=== PATIENT | female | born 1950 | race Asian ===

== ENCOUNTER → 2018-03-27 07:58 | Outpatient (CLI) | payer MEDICARE, OTHER, SELFPAY ==
--- NOTE | 2018-03-27 | DI.US.S_ITS ---
PROCEDURE: US PELVIC COMPLETE INDICATIONS: RIGHT LOWER QUADRANT PAIN TECHNIQUE: Real-time scanning was performed of the pelvic organs, with image documentation. Additional endovaginal scanning was necessary due to incomplete visualization of the adnexal and endometrial structures by transabdominal scanning. COMPARISON: [facility], , US ABDOMEN COMPLETE, 03/27/2018, 8:31. FINDINGS: Transabdominal scanning: Limited scanning through the kidneys shows no hydronephrosis. No pathologic free abdominal or pelvic fluid. Endovaginal scanning: Uterus: Uterus is normal in size at 3.8 x 2.2 x 3.6 cm. The endometrium measures 1.8 mm in combined thickness. Ovaries: Not visualized. The appendix is not visualized. IMPRESSION: No source for right lower quadrant pain identified and the ovaries nor the appendix is not seen. If indicated CT could be performed. Dictated by: Brandon GREENE Interpreted: Sherice Valiente MD on 03/27/2018 at 12:41 Approved by: Sherice Valiente M.D. on 03/27/2018 at 15:05
--- NOTE | 2018-03-27 | DI.US.S_ITS ---
PROCEDURE: US ABDOMEN COMPLETE INDICATIONS: RIGHT LOWER QUADRANT PAIN TECHNIQUE: Real-time scanning was performed of the abdominal and retroperitoneal organs, with image documentation. COMPARISON: None. FINDINGS: Liver: Liver is normal in size and homogeneous in echotexture. Gallbladder: No gallstones identified. Normal gallbladder wall. No pericholecystic fluid. Negative sonographic Merritt sign. Biliary ducts: Intrahepatic bile ducts are non-dilated. Extrahepatic bile duct caliber measures 7.5 mm. Normal is 6-7 mm or less in diameter, or 10 mm or less post-cholecystectomy. Pancreas: Visualized portions of the pancreas are sonographically normal. Spleen: Spleen is normal in size and homogeneous in echotexture. Kidneys: Kidneys are normal in size and echotexture. Right kidney measures 9.5 cm long; left kidney measures 9.1 cm long. No hydronephrosis or nephrolithiasis. No solid masses. Aorta: Visualized aorta is normal in caliber at less than 3 cm. Iliacs: Proximal common iliac arteries are normal in caliber at less than 2.5 cm. IVC: Intrahepatic inferior vena cava is patent. Miscellaneous: No free abdominal fluid. IMPRESSION: No source for right lower quadrant pain identified sonographically. Dictated by: Brandon GREENE Interpreted: Sherice Valiente MD on 03/27/2018 at 12:39 Approved by: Sherice Valiente M.D. on 03/27/2018 at 15:05
== END ==
PROVIDERS: PCP Internal Medicine; Visit Provider Internal Medicine
DX: R10.31 Right lower quadrant pain (principal)
CPT/HCPCS: 76700; 76830; 76856

== ENCOUNTER → 2018-04-04 12:39 | Outpatient (CLI) | payer MEDICARE, OTHER, SELFPAY ==
--- NOTE | 2018-04-04 | DI.CT.S_ITS ---
PROCEDURE: CT ABDOMEN PELVIS WO/W CON INDICATIONS: HEMATURIA TECHNIQUE: After the administration of oral contrast, 5 mm thick sections acquired from the diaphragms to the iliac crests. After the administration of intravenous contrast, 5 mm thick sections acquired from the diaphragms to the symphysis. 5 mm thick coronal and sagittal reformats were acquired. For radiation dose reduction, the following was used: automated exposure control, adjustment of mA and/or kV according to patient size. COMPARISON: None. FINDINGS: Image quality: Excellent. ABDOMEN: Lung bases: Lung bases are clear. Heart size is normal. Kidneys: Both kidneys are normal in size. No renal stones or hydronephrosis. No hydronephrosis or nephrolithiasis. There is normal, symmetric renal enhancement. There is a 1.4 cm , mildly complex cyst in the left kidney with internal thin septa (Bosniak 2F). Renal calyceal systems are normal without filling defects on post contrast images. Ureters are normal in caliber and demonstrate expected course. No ureter stones. Bladder is normal. No bladder stones or masses. Other solid organs: Liver is normal in size and enhancement. Gallbladder is normal. Biliary system is non-dilated. Pancreas enhances normally. Spleen is normal in size and enhancement. No adrenal nodules. Bowel and peritoneum: Stomach, small and large bowel loops are normal in caliber and wall thickness. No free fluid or air. Nodes and vessels: No retroperitoneal or mesenteric adenopathy by size criteria. Aorta and inferior vena are normal in caliber. Miscellaneous: No ventral hernias. PELVIS: Genitourinary: Uterus is atrophic. Miscellaneous: No inguinal hernias or adenopathy. Bones: No suspicious bony lesions. No vertebral body compression fractures. IMPRESSION: 1. A 1.4 cm slightly complex cyst in the left kidney (Bosniak 2F). 2. No CT findings to explain hematuria. No renal stone or hydronephrosis. No renal masses. 3. Normal urinary bladder. Dictated by: Elle Cooper M.D. on 04/04/2018 at 15:54 Transcribed by: SHAILESH on 04/04/2018 at 16:00 Approved by: Elle Cooper M.D. on 04/04/2018 at 17:20
== END ==
PROVIDERS: PCP Internal Medicine; Visit Provider Urology
DX: R31.9 Hematuria, unspecified (principal); N28.1 Cyst of kidney, acquired
CPT/HCPCS: 74178; Q9967

== ENCOUNTER → 2018-04-24 11:41 | Outpatient (CLI) | payer MEDICARE, OTHER, SELFPAY ==
--- NOTE | 2018-04-24 | DI.MG.S_ITS ---
BILATERAL DIGITAL SCREENING MAMMOGRAM 3D/2D WITH CAD: 04/24/2018 CLINICAL: Routine screening. Comparison is made to exams dated: 07/18/2016 mammogram, 07/08/2014 mammogram, and 05/29/2013 mammogram - [facility]. The tissue of both breasts is extremely dense, which lowers the sensitivity of mammography. Current study was also evaluated with a Computer Aided Detection (CAD) system. There are benign calcifications in both breasts. No significant masses, calcifications, or other findings are seen in either breast. There has been no significant interval change. IMPRESSION: BENIGN There is no mammographic evidence of malignancy. A 1 year screening mammogram is recommended. This exam was interpreted at Station ID: [id number]. NOTE: For mammograms, a report in lay terms will be sent to the patient. Approximately 15% of breast malignancies will not be visualized mammographically. In the management of a palpable breast mass, a negative mammogram must not discourage biopsy of a clinically suspicious lesion. Electronically Signed By: Mainor blue/afia:04/25/2018 03:24:44 letter sent: Normal Exam ACR BI-RADS Category 2: Benign Finding(s) 3342F
== END ==
PROVIDERS: PCP Internal Medicine; Visit Provider Internal Medicine
DX: Z12.31 Encounter for screening mammogram for malignant neoplasm of breast (principal)
CPT/HCPCS: 77063; 77067

== ENCOUNTER 2018-05-21 18:57 | Emergency (ER) | payer MEDICARE, OTHER, SELFPAY ==
--- NOTE | 2018-05-21 19:03 | ED_ITS ---
HPI - Chest Pain General Chief Complaint: Chest Pain Stated Complaint: LEFT SIDE CHEST PAIN UPPER BACK PAIN Time Seen by Provider: 05/21/18 19:02 Source: patient Mode of arrival: ambulatory Limitations: no limitations History of Present Illness HPI narrative: Patient is a 67-year-old female sent over from her primary doctor 's office for concerns of chest pain. Patient states that on Monday which was 3 days ago she was at her normal state health. She states she was thirsty so she took a drink of water. She states that afterwards she had a pain in her chest. She states she thought that it was reflux. She took an antacid which did improve her symptoms somewhat but did not take the symptoms completely away. She states that since then she has had a baseline small pain in her epigastric region. She states that it does get worse with taking a big deep breath. She states she does feel it in her back. No nausea vomiting. No prior history of blood clots. No prior history of coronary artery disease. No history of hypertension. She went to her primary care doctor today who sent her here for evaluation of cardiac, pleurisy, PE workup. Patient also states that her symptoms returned when she bends over. Related Data Previous Rx's Medication Instructions Recorded betamethasone dipropionate 1 claudio TOPICAL BID #45 gm 04/11/16 hydroxyzine pamoate [Vistaril] 25 mg PO TIDP PRN #20 cap 04/11/16 Allergies Allergy/AdvReac Type Severity Reaction Status Date / Time estrogens, conjugated Allergy Unknown Unverified 12/13/17 11:49 [From PREMARIN] Review of Systems Constitutional Denies fatigue, Denies fever(s), Denies lethargy and Denies malaise ENT Ears, Nose, Mouth, and Throat: Denies vertigo and Denies dizziness Cardiovascular Reports chest pain, Denies syncope, Denies rapid heart rate, Denies pedal edema , Denies irregular heart rhythm, Denies leg edema, Denies lightheadedness, Denies radiating jaw, neck or arm pain, Denies dyspnea and Denies dyspnea on exertion Respiratory Denies cough, Reports pain on inspiration, Denies pain with cough, Denies dyspnea, Denies dyspnea on exertion and Denies wheezing Gastrointestinal Gastrointestinal: Denies abdominal pain, Denies nausea and Denies vomiting Genitourinary Denies dysuria, Denies urinary hesitancy and Denies urinary urgency Musculoskeletal Denies myalgias and Denies arthralgias Integumentary/Breasts Denies lesions and Denies rash Neurologic Denies vertigo, Denies dizziness and Denies syncope Endocrine Denies fatigue Hematologic/Lymphatic Denies easy bleeding and Denies easy bruising Allergic/Immunologic Denies wheezing FOR[facility]LY [facility] Medical History Rheumatoid arthritis (Acute) Surgical History No pertinent past surgical history (Acute) Social History Smoking Status: Never smoker Exam Initial Vital Signs Initial Vital Signs: Vital Signs Temperature 97.9 F 05/21/18 19:06 Pulse Rate 72 05/21/18 19:06 Respiratory Rate 20 05/21/18 19:06 Blood Pressure 181/83 H 05/21/18 19:06 Pulse Oximetry 100 05/21/18 19:06 Const General: cooperative, healthy appearing, comfortable, well developed, well groomed and No acute distress Orientation: alert, awake and oriented x3 [facility] Head: normal to inspection, normocephalic and atraumatic Resp Effort & Inspection: normal respiratory effort Auscultation: clear to auscultation bilaterally Cardio Rate: regular rate Rhythm: regular rhythm Pulses: radial pulses present GI Inspection: non-distended Palpation: soft, No firm and No tender Back/Spine/Pelvis Back: No CVA tenderness Skin Lesions: no lesions Rashes: no rashes Neuro General: alert, awake and oriented x3 Cognition: normal cognition Speech: speech normal Motor: muscle tone normal throughout Sensory Exam: no sensory deficits noted Extrem General: normal to inspection and capillary refill normal Psych Appearance: grossly normal and well kempt Course Orders Ordered: ED Orders 05/21/18 19:04 XR chest 1V Stat EKG-12 Lead Stat 05/21/18 19:21 CT angio chest PE protocol Stat 05/21/18 19:45 B Type Natriuretic Peptide Stat Complete Blood Count AUTO DIFF Stat Comprehensive Metabolic Panel Stat Lipase Stat Partial Thromboplastin Time Stat Prothrombin Time INR Stat Troponin I Stat 05/21/18 21:11 Urine Microscopic Stat Discontinued Medications Aspirin (Aspirin Chew) 324 mg PO NOW ONE Stop: 09/17/18 19:04 Last Admin: 05/21/18 19:51 Dose: 324 mg Vital Signs - 8 hr 05/21/18 19:06 05/21/18 21:01 05/21/18 21:38 Temperature 97.9 F Pulse Rate 72 16 L 69 Respiratory Rate 20 18 14 Blood Pressure 181/83 H Blood Pressure [Left Arm] 140/72 138/65 Pulse Oximetry 100 100 99 05/21/18 22:14 Temperature Pulse Rate 71 Respiratory Rate 14 Blood Pressure Blood Pressure [Left Arm] 134/69 Pulse Oximetry 97 MDM - Chest Pain Lab Data Attestation: I reviewed the patient's lab results. Result diagrams: 05/21/18 19:45 05/21/18 19:45 Lab Results 05/21/18 05/21/18 05/21/18 Range/Units 19:45 19:45 19:45 WBC 8.1 (4.5-11.0) X10^3/uL RBC 4.26 (4.0-5.2) X10^6/uL Hgb 12.9 (12.0-16.0) g/dL Hct 37.9 (36-46) % MCV 88.9 (80-100) fL MCH 30.4 (26-34) PG MCHC 34.2 (30-36) % RDW 12.5 (11.6-14.8) % Plt Count 272 (150-400) X10^3/uL Neut % (Auto) 66.2 (50-75) % Lymph % (Auto) 28.2 (25-40) % [place] % (Auto) 4.1 (3-14) % Eos % (Auto) 0.5 L (2-4) % Baso % (Auto) 1.0 (0-2) % Neut # (Auto) 5400 (6398-7567) /uL PT 10.9 (10.1-12.7) SECONDS INR 1.0 (0.9-1.3) APTT 30 (26.4-36.2) SECONDS Sodium 144 (137-145) mmol/L Potassium 3.7 (3.4-5.1) mmol/L Chloride 106 (98-107) mmol/L Carbon Dioxide 28 (22-32) mmol/L BUN 19 H (7-17) mg/dL Creatinine 0.80 (0.52-1.04) mg/dL Estimated GFR > 60.0 (>60) mL/min BUN/Creatinine Ratio 23.8 H (6-22) Glucose 187 H (80-110) mg/dL Calcium 8.9 (8.4-10.2) mg/dL Total Bilirubin 0.3 (0.2-1.3) mg/dL AST 19 (14-36) IU/L ALT 17 (9-52) IU/L Alkaline Phosphatase 65 (38-126) U/L Troponin I < 0.012 (0.01-0.034) ng/mL B-Natriuretic Peptide < 100.0 (<100) Total Protein 7.5 (6.3-8.2) g/dL Albumin 4.1 (3.5-5.0) g/dL Globulin 3.4 (1.7-4.1) g/dL Albumin/Globulin Ratio 1.2 (1.0-2.8) Lipase 177 (23-300) U/L Urine RBC (0-5/HPF) Urine WBC (0-5/HPF) Urine Bacteria (None) Ur Culture Indicated? Micro UA Comment 05/21/18 Range/Units 21:11 WBC (4.5-11.0) X10^3/uL RBC (4.0-5.2) X10^6/uL Hgb (12.0-16.0) g/dL Hct (36-46) % MCV (80-100) fL MCH (26-34) PG MCHC (30-36) % RDW (11.6-14.8) % Plt Count (150-400) X10^3/uL Neut % (Auto) (50-75) % Lymph % (Auto) (25-40) % [place] % (Auto) (3-14) % Eos % (Auto) (2-4) % Baso % (Auto) (0-2) % Neut # (Auto) (3854-5711) /uL PT (10.1-12.7) SECONDS INR (0.9-1.3) APTT (26.4-36.2) SECONDS Sodium (137-145) mmol/L Potassium (3.4-5.1) mmol/L Chloride (98-107) mmol/L Carbon Dioxide (22-32) mmol/L BUN (7-17) mg/dL Creatinine (0.52-1.04) mg/dL Estimated GFR (>60) mL/min BUN/Creatinine Ratio (6-22) Glucose (80-110) mg/dL Calcium (8.4-10.2) mg/dL Total Bilirubin (0.2-1.3) mg/dL AST (14-36) IU/L ALT (9-52) IU/L Alkaline Phosphatase (38-126) U/L Troponin I (0.01-0.034) ng/mL B-Natriuretic Peptide (<100) Total Protein (6.3-8.2) g/dL Albumin (3.5-5.0) g/dL Globulin (1.7-4.1) g/dL Albumin/Globulin Ratio (1.0-2.8) Lipase (23-300) U/L Urine RBC 1-5/hpf (0-5/HPF) Urine WBC None seen (0-5/HPF) Urine Bacteria None seen (None) Ur Culture Indicated? Cult not indicated Micro UA Comment Not Reportable Urine Dip Bedside Urine Glucose Negative Bedside Urine Bilirubin - Negative Bedside Urine Ketone - Negative Urine Specific Hooks 1.015 Bedside Urine Occult Blood ++ Bedside Urine pH 6.5 Bedside Urine Protein - Negative Bedside Urine Urobilinogen - Negative Bedside Urine Nitrite - Negative Bedside Urine Leukocytes - Negative Esterase Imaging Data Chest x-ray: Radiologist's impression: PROCEDURE: XR CHEST 1V INDICATIONS: Chest pain TECHNIQUE: One view of the chest was acquired. COMPARISON: [facility], CT, CHEST HIGH RESOLUTION, 09/26/2011, 15:01. [facility], CR, CHEST 2 VIEW, 12/07/2010, 11:07. [facility], , CHEST 2 VIEW , 07/22/2011, 15:36. FINDINGS: Surgical changes and devices: None. Lungs and pleura: No pleural effusions or pneumothorax. Lungs are clear. Mediastinum: Mediastinal contours appear normal. Heart size is normal. Bones and chest wall: No suspicious bony lesions. Overlying soft tissues appear unremarkable. IMPRESSION: No acute cardiopulmonary process is seen. Dictated by: Luis Angel Landon M.D. on 05/21/2018 at 19:21 Approved by: Luis Angel Landon M.D. on 05/21/2018 at 19:22 CT scan - chest: Radiologist's impression: PROCEDURE: CT ANGIO CHEST PE PROTOCOL INDICATIONS: Chest pain, shortness of breath TECHNIQUE: After the administration of intravenous contrast, 2 mm thick sections acquired from the pulmonary apices to the posterior costophrenic angles. 3-dimensional maximum intensity projection (MIP) coronal and sagittal reformats were then acquired through the thorax. For radiation dose reduction, the following was used: automated exposure control, adjustment of mA and/or kV according to patient size. COMPARISON: [facility], CR, XR CHEST 1V, 05/21/2018, 19:07. [facility], CT, CT ABDOMEN PELVIS WO/W CON, 04/04/2018, 13:23. [facility], CT, CHEST HIGH RESOLUTION, 02/13/2012, 9:26. [facility], CT, CHEST HIGH RESOLUTION, 09/26/2011, 15:01. FINDINGS: Image quality: Excellent. Pulmonary arteries: Pulmonary arteries are normal in size, and demonstrate no intraluminal filling defects to suggest central pulmonary embolism. Lungs and pleura: Mild dependent atelectasis is seen. No pleural effusions or pneumothorax. Central and peripheral airways are patent. Mediastinum: Heart size is normal, without pericardial effusion. No mediastinal or hilar adenopathy. Thoracic aorta is normal in caliber and enhancement. Esophagus is normal in caliber, without hiatal hernia. Bones and chest wall: No suspicious bony lesions. Age-appropriate bony degenerative changes are seen. Ribs and thoracic spine appear intact throughout. Thyroid gland demonstrates no significant CT abnormality. No axillary or supraclavicular adenopathy. Abdomen: A likely hyperdense cyst is again seen involving the superolateral left kidney, which is similar to 2016. The visualized portions of the upper abdominal structures are otherwise unremarkable for imaging technique. IMPRESSION: Negative for pulmonary embolism. Dictated by: Luis Angel Landon M.D. on 05/21/2018 at 21:51 Approved by: Luis Angel Landon M.D. on 05/21/2018 at 21:55 ECG Data Attestation: I personally reviewed and interpreted this ECG as follows: Prior ECG tracings: not available for review Interpretation: Sinus rhythm Ventricular rate is 65 Normal axis Normal intervals Normal QRS Normal QTC No ST T wave changes MDM Narrative Medical decision making narrative: EKG is unremarkable. Troponin drawn greater than 6 hr after constant pain negative. CT scan of chest shows no signs of pulmonary embolism. Shows no signs of pericardial effusion. Given the fact that her pain is pleuritic and gets worse when she bends over I did consider pericarditis however she does not have EKG evidence of this. No friction rub heard on exam. She has no pericardial effusion. She is afebrile. No signs of tamponade. No history of trauma. No other signs of viral illness. Chest x-ray is unremarkable. No signs of pneumonia. I suspect pleuritic chest pain. No indication for antibiotics. Patient states she cannot take anti-inflammatories secondary to history of gastritis. We did discuss the use of Tylenol. We did discuss return precautions. Will hold on further workup for now. The patient and her both expressed understanding and agreement with plan. Discharge Plan Departure Patient Disposition: Home Clinical Impression: Atypical chest pain, Pleurisy Instructions: DI for Atypical Chest Pain, DI for Pleurisy Activity Restrictions/Additional Instructions: Call your primary care doctor for a follow-up. Return to the emergency department for any new symptoms, fevers, problems breathing, worsening pain or any other concerning symptoms. Continue all of your medications as directed. Prescriptions: No Action betamethasone dipropionate 0.05 % cream 1 claudio Topical BID Qty: 45 RF: 0 hydroxyzine pamoate [Vistaril] 25 MG capsule 25 mg PO TIDP PRNQty: 20 RF: 0
[2018-05-21 19:06] VITALS: BP 181/83; PULSE 72; RESP 20; TEMP 36.6; O2SAT 100
--- NOTE | 2018-05-21 19:21 | DI.CT.S_ITS ---
PROCEDURE: CT ANGIO CHEST PE PROTOCOL INDICATIONS: Chest pain, shortness of breath TECHNIQUE: After the administration of intravenous contrast, 2 mm thick sections acquired from the pulmonary apices to the posterior costophrenic angles. 3-dimensional maximum intensity projection (MIP) coronal and sagittal reformats were then acquired through the thorax. For radiation dose reduction, the following was used: automated exposure control, adjustment of mA and/or kV according to patient size. COMPARISON: [facility], CR, XR CHEST 1V, 05/21/2018, 19:07. [facility], CT, CT ABDOMEN PELVIS WO/W CON, 04/04/2018, 13:23. [facility], CT, CHEST HIGH RESOLUTION, 02/13/2012, 9:26. [facility], CT, CHEST HIGH RESOLUTION, 09/26/2011, 15:01. FINDINGS: Image quality: Excellent. Pulmonary arteries: Pulmonary arteries are normal in size, and demonstrate no intraluminal filling defects to suggest central pulmonary embolism. Lungs and pleura: Mild dependent atelectasis is seen. No pleural effusions or pneumothorax. Central and peripheral airways are patent. Mediastinum: Heart size is normal, without pericardial effusion. No mediastinal or hilar adenopathy. Thoracic aorta is normal in caliber and enhancement. Esophagus is normal in caliber, without hiatal hernia. Bones and chest wall: No suspicious bony lesions. Age-appropriate bony degenerative changes are seen. Ribs and thoracic spine appear intact throughout. Thyroid gland demonstrates no significant CT abnormality. No axillary or supraclavicular adenopathy. Abdomen: A likely hyperdense cyst is again seen involving the superolateral left kidney, which is similar to 2016. The visualized portions of the upper abdominal structures are otherwise unremarkable for imaging technique. IMPRESSION: Negative for pulmonary embolism. Dictated by: Luis Angel Landon M.D. on 05/21/2018 at 21:51 Approved by: Luis Angel Landon M.D. on 05/21/2018 at 21:55
[2018-05-21] MEDS: ASPIRIN 81 MG TAB 324 MG PO (19:51)
[2018-05-21 20:17] LABS: Add Manual Diff / Slide Review NO; Eosinophils Percent Auto 0.5 % (2-4); Hematocrit 37.9 % (36-46); Hemoglobin 12.9 g/dL (12.0-16.0); Lymphocytes Percent Auto 28.2 % (25-40); Mean Corpuscular HGB Conc 34.2 % (30-36); Mean Corpuscular Hemoglobin 30.4 PG (26-34); Mean Corpuscular Volume 88.9 fL (80-100); Monocytes Percent Auto 4.1 % (3-14); Neutrophils Absolute Auto 5400 /uL (3000-5900); Neutrophils Percent Auto 66.2 % (50-75); Platelet Count 272 X10^3/uL (150-400); Red Blood Cell Count 4.26 X10^6/uL (4.0-5.2); Red Cell Distribution Width 12.5 % (11.6-14.8); White Blood Cell Count 8.1 X10^3/uL (4.5-11.0)
[2018-05-21 20:30] LABS: Prothrombin Time 10.9 SECONDS (10.1-12.7)
[2018-05-21 20:33] LABS: PTT Partial Thromboplastin Tim 30 SECONDS (26.4-36.2)
[2018-05-21 20:49] LABS: B Type Natriuretic Peptide < 100.0 (<100)
[2018-05-21 21:01] VITALS: BP 140/72; PULSE 16; RESP 18; O2SAT 100
[2018-05-21 21:05] LABS: Alanine Aminotransferase 17 IU/L (9-52); Albumin 4.1 g/dL (3.5-5.0); Albumin Globulin Ratio 1.2 (1.0-2.8); Alkaline Phosphatase 65 U/L (38-126); Aspartate Aminotransferase 19 IU/L (14-36); BUN Creatinine Ratio 23.8 (6-22); Bilirubin Total 0.3 mg/dL (0.2-1.3); Blood Urea Nitrogen 19 mg/dL (7-17); Calcium 8.9 mg/dL (8.4-10.2); Carbon Dioxide 28 mmol/L (22-32); Chloride 106 mmol/L (98-107); Estimated Glomerular Filt Rate > 60.0 mL/min (>60); Globulin 3.4 g/dL (1.7-4.1); Glucose 187 mg/dL (80-110); HEMOLYSIS < 15 (0-50); Lipase 177 U/L (23-300); Potassium 3.7 mmol/L (3.4-5.1); Sodium 144 mmol/L (137-145); Total Protein 7.5 g/dL (6.3-8.2)
[2018-05-21 21:17] LABS: Troponin I < 0.012 ng/mL (0.01-0.034)
[2018-05-21 21:22] LABS: Bacteria Urine None Seen; WBC Urine None Seen (0-5/HPF)
[2018-05-21 21:32] LABS: RBC Urine 1-5/HPF (0-5/HPF)
[2018-05-21 21:33] LABS: Culture Indicated Urine Cult Not Indicated
[2018-05-21 21:38] VITALS: BP 138/65; PULSE 69; RESP 14; O2SAT 99
[2018-05-21 22:14] VITALS: BP 134/69; PULSE 71; RESP 14; O2SAT 97
[2018-05-21 22:30] VITALS: BP 144/78; PULSE 67; RESP 14; O2SAT 100
== END 2018-05-21 22:42 | disposition home or self-care (01) ==
PROVIDERS: Emergency Provider Emergency Medicine; PCP Internal Medicine
DX: R07.89 Other chest pain (principal); R09.1 Pleurisy
CPT/HCPCS: 36591; 71045; 71275; 80053; 81003; 81015; 83690; 83880; 84484; 85025; 85610; 85730; 93005; 99283; 99285; Q9967

== ENCOUNTER → 2019-02-13 14:39 | Outpatient (CLI) | payer MEDICARE, OTHER, SELFPAY ==
--- NOTE | 2019-02-13 | DI.US.S_ITS ---
PROCEDURE: US RENAL COMPLETE INDICATIONS: MICROSCOPIC HEMATURIA TECHNIQUE: Real-time scanning was performed of the kidneys and bladder, with image documentation. COMPARISON: [facility], US, US ABDOMEN COMPLETE, 03/27/2018, 8:31. [facility], CT, CT ABDOMEN PELVIS WO/W CON, 04/04/2018, 13:23. [facility], CT, CT ANGIO CHEST PE PROTOCOL, 05/21/2018, 21:09. FINDINGS: Kidneys: Kidneys are normal in size. Right kidney measures 8.6 cm long; left kidney measures 9.1 cm long. Right renal cortical thickness is 1.1 cm; left renal cortical thickness is 1.0 cm. Renal cortical echotexture is normal. No hydronephrosis or nephrolithiasis. No suspicious solid mass lesions. There is a 1.5 x 1.3 x 1.9 cm simple appearing cyst in mid left kidney. Bladder: Pre-void bladder volume is 235 mL. Post-void residual is 0 mL. Pre-void images demonstrate no intraluminal masses or stones. On pre-void images, both ureteral jets are noted with color Doppler interrogation. (Of note, ureteral jets may not be detectable in up to 25% of cases due to insufficient differences in specific gravity between ureteral and bladder urine). Miscellaneous: No free pelvic fluid. IMPRESSION: 1. There is a simple cyst in mid left kidney. No renal stone or hydronephrosis. 2. No findings to explain microscopic hematuria. 3. Normal right kidney and bladder. Dictated by: Elle Cooper M.D. on 02/13/2019 at 15:48 Approved by: Elle Cooper M.D. on 02/13/2019 at 15:53
== END ==
PROVIDERS: PCP Internal Medicine; Visit Provider Urology
DX: R31.29 Other microscopic hematuria (principal); N28.1 Cyst of kidney, acquired
CPT/HCPCS: 76770

== ENCOUNTER → 2019-05-27 09:41 | Outpatient (CLI) | payer MEDICARE, OTHER, SELFPAY | PROVIDERS: PCP Internal Medicine; Visit Provider Internal Medicine Rheumatology | DX: M85.88 Other specified disorders of bone density and structure, other site (principal); Z78.0 Asymptomatic menopausal state; M06.9 Rheumatoid arthritis, unspecified | CPT/HCPCS: 77080 ==

== ENCOUNTER → 2019-06-03 13:02 | Outpatient (CLI) | payer MEDICARE, OTHER, SELFPAY ==
--- NOTE | 2019-06-03 | DI.MG.S_ITS ---
BILATERAL DIGITAL SCREENING MAMMOGRAM 3D/2D WITH CAD: 06/03/2019 CLINICAL: Routine screening. Comparison is made to exams dated: 04/24/2018 mammogram - [facility], 07/18/2016 mammogram, and 07/08/2014 mammogram - [facility]. The tissue of both breasts is extremely dense, which lowers the sensitivity of mammography. Current study was also evaluated with a Computer Aided Detection (CAD) system. There are benign calcifications in both breasts. No significant masses, calcifications, or other findings are seen in either breast. There has been no significant interval change. IMPRESSION: There is no mammographic evidence of malignancy. A 1 year screening mammogram is recommended. This exam was interpreted at Station ID: [id number]. NOTE: For mammograms, a report in lay terms will be sent to the patient. Approximately 15% of breast malignancies will not be visualized mammographically. In the management of a palpable breast mass, a negative mammogram must not discourage biopsy of a clinically suspicious lesion. Electronically Signed By: Vel merrill/afia:06/03/2019 13:45:39 letter sent: Normal Exam ACR BI-RADS Category 2: Benign Finding(s) [id number]
== END ==
PROVIDERS: PCP Internal Medicine; Visit Provider Internal Medicine
DX: Z12.31 Encounter for screening mammogram for malignant neoplasm of breast (principal)
CPT/HCPCS: 77063; 77067

== ENCOUNTER 2019-07-08 09:22 | Emergency (ER) | payer MEDICARE, OTHER, SELFPAY ==
[2019-07-08] VITALS (15 sets, daily range): BP systolic 113–158; BP diastolic 44–91; PULSE 59–72; RESP 11–20; TEMP 36.3; O2SAT 95–100; BMI 26.2
--- NOTE | 2019-07-08 09:38 | DI.RAD.S_ITS ---
PROCEDURE: XR CHEST 1V INDICATIONS: chest pain TECHNIQUE: One view of the chest was acquired. COMPARISON: [facility], CR, XR CHEST 1V, 05/21/2018, 19:07. FINDINGS: Surgical changes and devices: None. Lungs and pleura: Left basilar scarring/atelectasis is again seen. No definite focal infiltrate. No pleural effusions or pneumothorax. Mediastinum: Mediastinal contours appear normal. Heart size is normal. Bones and chest wall: No suspicious bony lesions. Overlying soft tissues appear unremarkable. IMPRESSION: Left basilar atelectasis/scarring. No definite focal infiltrate. No pleural effusion or pneumothorax. Dictated by: Madi Chavarria M.D. on 07/08/2019 at 10:04 Approved by: Madi Chavarria M.D. on 07/08/2019 at 10:05
[2019-07-08 09:44] LABS: Add Manual Diff / Slide Review NO; Basophils Absolute Auto 100 /uL (0-100); Basophils Percent Auto 0.8 % (0-2); Eosinophils Absolute Auto 200 /uL (0-450); Eosinophils Percent Auto 1.8 % (2-4); Hematocrit 39.9 % (36-46); Hemoglobin 13.3 g/dL (12.0-16.0); Lymphocytes Absolute Auto 5100 /uL (1100-4500); Lymphocytes Percent Auto 57.9 % (25-40); Mean Corpuscular HGB Conc 33.3 % (30-36); Mean Corpuscular Hemoglobin 29.5 PG (26-34); Mean Corpuscular Volume 88.6 fL (80-100); Monocytes Absolute Auto 600 /uL (0-900); Monocytes Percent Auto 6.4 % (3-14); Neutrophils Absolute Auto 2900 /uL (1500-7000); Neutrophils Percent Auto 33.1 % (50-75); Platelet Count 257 X10^3/uL (150-400); Red Cell Distribution Width 12.7 % (11.6-14.8); White Blood Cell Count 8.7 X10^3/uL (4.5-11.0)
[2019-07-08 09:49] LABS: Prothrombin Time 11.2 SECONDS (10.1-12.7)
[2019-07-08 09:51] LABS: PTT Partial Thromboplastin Tim 28 SECONDS (26.4-36.2)
[2019-07-08 09:53] LABS: Alanine Aminotransferase 18 IU/L (<35); Albumin 4.6 g/dL (3.5-5.0); Albumin Globulin Ratio 1.3 (1.0-2.8); Alkaline Phosphatase 68 U/L (38-126); Aspartate Aminotransferase 25 IU/L (14-36); Bilirubin Total 0.5 mg/dL (0.2-1.3); Blood Urea Nitrogen 16 mg/dL (7-17); Calcium 9.3 mg/dL (8.4-10.2); Carbon Dioxide 26 mmol/L (22-32); Chloride 102 mmol/L (98-107); Creatine Kinase 72 U/L (30-135); Estimated Glomerular Filt Rate > 60.0 mL/min (>60); Globulin 3.5 g/dL (1.7-4.1); Glucose 130 mg/dL (80-110); HEMOLYSIS < 15 (0-50); Lipase 180 U/L (23-300); Potassium 3.2 mmol/L (3.4-5.1); Sodium 140 mmol/L (137-145); Total Protein 8.1 g/dL (6.3-8.2)
[2019-07-08 10:04] LABS: Troponin I < 0.012 ng/mL (0.01-0.034)
--- NOTE | 2019-07-08 11:32 | ED.CHESTPAIN ---
HPI - Chest Pain General Chief Complaint: Chest Pain Stated Complaint: chest pains back pain throwing up not feeling well Time Seen by Provider: 07/08/19 09:55 Source: patient Mode of arrival: Ambulatory Limitations: no limitations History of Present Illness HPI narrative: Patient comes emergency department complaining of chest pain and pressure that started this morning. She states that she began to have a feeling of nausea at the same time and also had a headache. Patient denies any shortness of breath. She states that she had this happen about 1 year ago and is not known to have any cardiac problems. Patient denies any recent illnesses. No fever chills. No cough. No sick contacts. Patient states she is feeling better now. No other complaints at this time. She states that the pain was approximately a 6/10, but this has resolved. Related Data Home Medications Medication Instructions Recorded Confirmed calcium carbonate-vitamin D3 1 tab PO DAILY 07/08/19 07/08/19 [Calcium 500 + D] doxycycline hyclate 100 mg PO BID 07/08/19 07/08/19 etanercept [Enbrel SureClick] 0 mg SUBCUT QWEEK 07/08/19 07/08/19 famotidine 20 mg PO BID 07/08/19 07/08/19 fexofenadine 180 mg PO DAILY 07/08/19 07/08/19 fluticasone propionate 1 spray INTRANASAL DIRECTED 07/08/19 07/08/19 omega 0-usp-itj-fish oil [Fish Oil] 1,000 cap PO BID-TID 07/08/19 07/08/19 prednisone 5 mg PO DAILY 07/08/19 07/08/19 Allergies Allergy/AdvReac Type Severity Reaction Status Date / Time estrogens, conjugated Allergy Unknown Unverified 12/13/17 11:49 [From PREMARIN] Review of Systems Constitutional Constitutional: Denies chills, Denies fatigue, Denies fever(s), Denies frequent falls, Denies lethargy and Denies weakness Eyes Eyes: Denies change in vision, Denies eye discharge, Denies irritation and Denies loss of vision ENT Ears, Nose, Mouth, and Throat: Denies change in voice, Denies dizziness, Denies neck pain, Denies sore throat and Denies throat swelling Cardiovascular Cardiovascular: Reports chest pain, Denies irregular heart rhythm, Denies lightheadedness, Denies palpitations, Denies dyspnea, Denies dyspnea on exertion and Denies orthopnea Comments: Chest pressure Respiratory Respiratory: Denies cough, Denies dyspnea, Denies dyspnea on exertion and Denies wheezing Gastrointestinal Gastrointestinal: Denies abdominal pain, Denies change in bowel habits, Denies diarrhea, Reports nausea and Denies vomiting Genitourinary Genitourinary: Denies hematuria, Denies flank pain, Denies urinary incontinence and Denies urinary urgency Musculoskeletal Musculoskeletal: Denies back pain, Denies muscle weakness, Denies neck pain, Denies numbness and Denies tingling Integumentary/Breasts Skin/Breast: Denies pruritus, Denies erythema, Denies rash and Denies wounds Neurologic Neurologic: Denies behavioral changes, Denies confusion, Denies dizziness, Denies frequent falls, Denies loss of vision, Denies numbness, Denies tingling and Denies weakness Psychiatric Psychiatric: Denies anxiety, Denies behavioral changes, Denies confusion, Denies depression, Denies homicidal ideation and Denies suicidal ideation Endocrine Endocrine: Denies fatigue, Denies flushing and Denies palpitations Hematologic/Lymphatic Hematologic/Lymphatic: Denies easy bruising Allergic/Immunologic Allergic/Immunologic: Denies urticaria, Denies throat swelling and Denies wheezing Patient History Medical History Rheumatoid arthritis (Acute) Surgical History No pertinent past surgical history (Acute) Social History Smoking Status: Never smoker alcohol intake frequency: a few times a month Substance Use Type: does not use Exam Initial Vital Signs Initial Vital Signs: Vital Signs Temperature 97.4 F L 07/08/19 09:34 Pulse Rate 66 07/08/19 09:34 Respiratory Rate 15 07/08/19 09:34 Blood Pressure 157/79 H 07/08/19 09:34 Pulse Oximetry 100 07/08/19 09:34 Const General: cooperative and well developed Nutritional Appearance: well nourished Orientation: alert, awake, oriented x3 and not confused HENMT Head: normocephalic and atraumatic Ears: external ears normal Nose: external nose normal and No nasal discharge Face and sinus: face symmetric and No dry mucous membranes Mouth: oral mucosae normal and moist mucous membranes Teeth and gingiva: dentition normal Eyes General: appearance normal, both eyes and all related structures Eyelids: eyelids normal Conjunctivae: conjunctivae normal Sclera: sclerae normal Pupils: PERRL EOM: EOM intact bilaterally Neck Neck: normal visual inspection, trachea midline, No lymphadenopathy, No midline deformity and No JVD Lymphatic: No lymphedema Chest Chest: normal inspection of the chest Resp Effort & Inspection: normal respiratory effort, able to speak in complete sentences, no respiratory distress and no use of accessory muscles Auscultation: clear to auscultation bilaterally, no rales, no rhonchi and no wheezes Cardio Rate: regular rate Rhythm: regular rhythm Heart Sounds: no click, no gallops, no murmurs and no rubs Pulses: normal peripheral pulses GI Inspection: non-distended Palpation: soft, no hepatosplenomegaly, No guarding, No pulsatile mass and No tender Back/Spine/Pelvis Back: No CVA tenderness Cervical Spine: cervical ROM normal and No pain with cervical ROM Thoracic/Lumbar Spine: thoracic and lumbar spine normal to inspection Skin General: no rashes or lesions noted, No jaundice and No petechiae Neuro General: alert, oriented x3, gait normal and no focal motor deficits Speech: speech normal Extrem General: full ROM, no clubbing, cyanosis or edema, no pedal edema and no calf tenderness Psych Appearance: well kempt Mental Status: mental status grossly normal Attitude: cooperative Thought Content: normal and suicidality Judgment: judgment good Course Course Course Narrative: Patient was worked up with labs, EKG, and chest x-ray. Her pain resolved spontaneously in the emergency department, and she was found to be feeling overall better. Her initial labs, including troponin, were negative. However, I was concerned about the patient's combination of symptoms, as well as her family history, and I feel she should have a repeat troponin drawn. This was done and found to be positive for non ST elevation [place]. I did speak with Dr. Taylor of Cardiology at [facility], and she did agree that the patient should be transferred. She requested NPO after midnight for cardiac catheterization tomorrow. I spoke with Dr. Bruner, who is on-call for hospitalist service at [facility], and he agreed to accept the patient transfer. The findings were discussed with the patient, who is agreeable to transfer. Orders Ordered: Discontinued Medications Aspirin (Aspirin) 325 mg PO NOW ONE Stop: 07/08/19 13:59 Last Admin: 07/08/19 14:38 Dose: 325 mg Documented by: MAIDA Atorvastatin Calcium (Lipitor) 40 mg PO NOW ONE Stop: 07/08/19 15:18 Last Admin: 07/08/19 16:16 Dose: 40 mg Documented by: MAIDA Clopidogrel Bisulfate (Plavix) 300 mg PO NOW ONE Stop: 07/08/19 15:18 Last Admin: 07/08/19 16:15 Dose: 300 mg Documented by: MAIDA Heparin Sodium (Porcine) (Heparin) 5,000 unit 80 unit/kg (5000 unit) IV NOW ONE Stop: 07/08/19 15:04 Last Admin: 07/08/19 16:15 Dose: 5,000 unit Documented by: MAIDA Heparin Sodium/Dextrose (Heparin Drip) 25,000 unit in 500 mls @ 15.132 mls/hr IV CONT SHAKIRA; Protocol Last Admin: 07/08/19 16:15 Dose: 12 units/kg/hr, 15.132 mls/hr Documented by: MAIDA Metoprolol Succinate (Toprol Xl) 25 mg PO NOW ONE Stop: 07/08/19 15:18 Last Admin: 07/08/19 16:16 Dose: 25 mg Documented by: MAIDA Ondansetron HCl (Zofran) 4 mg IV NOW ONE Stop: 07/08/19 17:13 Last Admin: 07/08/19 17:45 Dose: Not Given Documented by: MAIDA Vital Signs Vital signs: Vital Signs - 8 hr 07/08/19 09:34 07/08/19 10:00 07/08/19 10:30 Temperature 97.4 F L Pulse Rate 66 70 67 Respiratory Rate 15 17 Blood Pressure 157/79 H Blood Pressure [Right Arm] 132/91 H 135/74 Pulse Oximetry 100 98 98 07/08/19 11:00 Temperature Pulse Rate 63 Respiratory Rate 20 Blood Pressure Blood Pressure [Right Arm] 126/71 Pulse Oximetry 100 MDM - Chest Pain Medical Records Data Attestation: I reviewed the patient's medical records. Lab Data Attestation: I reviewed the patient's lab results. Result diagrams: 07/08/19 09:30 07/08/19 09:30 Labs: Lab Results 07/08/19 07/08/19 07/08/19 Range/Units 09:30 09:30 09:30 WBC 8.7 (4.5-11.0) X10^3/uL RBC 4.50 (4.0-5.2) X10^6/uL Hgb 13.3 (12.0-16.0) g/dL Hct 39.9 (36-46) % MCV 88.6 (80-100) fL MCH 29.5 (26-34) PG MCHC 33.3 (30-36) % RDW 12.7 (11.6-14.8) % Plt Count 257 (150-400) X10^3/uL Neut % (Auto) 33.1 L (50-75) % Lymph % (Auto) 57.9 H (25-40) % Sumner % (Auto) 6.4 (3-14) % Eos % (Auto) 1.8 L (2-4) % Baso % (Auto) 0.8 (0-2) % Neut # (Auto) 2900 (0062-6437) /uL Lymph # (Auto) 5100 H (4313-1917) /uL Sumner # (Auto) 600 (0-900) /uL Eos # (Auto) 200 (0-450) /uL Baso # (Auto) 100 (0-100) /uL PT 11.2 (10.1-12.7) SECONDS INR 1.0 (0.9-1.3) APTT 28 D (26.4-36.2) SECONDS Sodium 140 (137-145) mmol/L Potassium 3.2 L (3.4-5.1) mmol/L Chloride 102 (98-107) mmol/L Carbon Dioxide 26 (22-32) mmol/L BUN 16 (7-17) mg/dL Creatinine 0.80 (0.52-1.04) mg/dL Estimated GFR > 60.0 (>60) mL/min BUN/Creatinine Ratio 20.0 (6-22) Glucose 130 H (80-110) mg/dL Calcium 9.3 (8.4-10.2) mg/dL Total Bilirubin 0.5 (0.2-1.3) mg/dL AST 25 (14-36) IU/L ALT 18 (<35) IU/L Alkaline Phosphatase 68 (38-126) U/L Total Creatine Kinase 72 (30-135) U/L CK-MB (CK-2) TNP CK-MB (CK-2) Rel Index TNP Troponin I < 0.012 (0.01-0.034) ng/mL Total Protein 8.1 (6.3-8.2) g/dL Albumin 4.6 (3.5-5.0) g/dL Globulin 3.5 (1.7-4.1) g/dL Albumin/Globulin Ratio 1.3 (1.0-2.8) Lipase 180 (23-300) U/L 07/08/19 Range/Units 11:55 WBC (4.5-11.0) X10^3/uL RBC (4.0-5.2) X10^6/uL Hgb (12.0-16.0) g/dL Hct (36-46) % MCV (80-100) fL MCH (26-34) PG MCHC (30-36) % RDW (11.6-14.8) % Plt Count (150-400) X10^3/uL Neut % (Auto) (50-75) % Lymph % (Auto) (25-40) % Sumner % (Auto) (3-14) % Eos % (Auto) (2-4) % Baso % (Auto) (0-2) % Neut # (Auto) (0424-0978) /uL Lymph # (Auto) (4830-0516) /uL Sumner # (Auto) (0-900) /uL Eos # (Auto) (0-450) /uL Baso # (Auto) (0-100) /uL PT (10.1-12.7) SECONDS INR (0.9-1.3) APTT (26.4-36.2) SECONDS Sodium (137-145) mmol/L Potassium (3.4-5.1) mmol/L Chloride (98-107) mmol/L Carbon Dioxide (22-32) mmol/L BUN (7-17) mg/dL Creatinine (0.52-1.04) mg/dL Estimated GFR (>60) mL/min BUN/Creatinine Ratio (6-22) Glucose (80-110) mg/dL Calcium (8.4-10.2) mg/dL Total Bilirubin (0.2-1.3) mg/dL AST (14-36) IU/L ALT (<35) IU/L Alkaline Phosphatase (38-126) U/L Total Creatine Kinase (30-135) U/L CK-MB (CK-2) CK-MB (CK-2) Rel Index Troponin I 0.148 H* (0.01-0.034) ng/mL Total Protein (6.3-8.2) g/dL Albumin (3.5-5.0) g/dL Globulin (1.7-4.1) g/dL Albumin/Globulin Ratio (1.0-2.8) Lipase (23-300) U/L Imaging Data Chest x-ray: Radiologist's impression: PROCEDURE: XR CHEST 1V INDICATIONS: chest pain TECHNIQUE: One view of the chest was acquired. COMPARISON: [facility], , XR CHEST 1V, 05/21/2018, 19:07. FINDINGS: Surgical changes and devices: None. Lungs and pleura: Left basilar scarring/atelectasis is again seen. No definite focal infiltrate. No pleural effusions or pneumothorax. Mediastinum: Mediastinal contours appear normal. Heart size is normal. Bones and chest wall: No suspicious bony lesions. Overlying soft tissues appear unremarkable. IMPRESSION: Left basilar atelectasis/scarring. No definite focal infiltrate. No pleural effusion or pneumothorax. Dictated by: Madi Chavarria M.D. on 07/08/2019 at 10:04 Approved by: Madi Chavarria M.D. on 07/08/2019 at 10:05 ECG Data Attestation: I personally reviewed and interpreted this ECG as follows: (See below) Interpretation: Twelve lead EKG performed July 08, 2019 at 9:36 a.m., as follows: Irregular ventricular rhythm with a rate of 63 beats per minute DE interval 185 milliseconds QRS duration 95 millisecond QTC interval 434 millisecond No ectopy No significant ST T wave changes Interpretation: Normal sinus rhythm; possible right ventricular conduction delay; no signs of acute ischemia; borderline EKG as interpreted by ED MD. Discharge Plan Departure Patient Disposition: [facility] Clinical Impression: Non-STEMI (non-ST elevated myocardial infarction) Discharge Date/Time: 07/08/19 18:27 Prescriptions: No Action fluticasone propionate 50 mcg/actuation spray,suspension 1 spray INTRANASAL DIRECTED RF: 0 doxycycline hyclate 100 mg tablet 100 mg PO BID RF: 0 Enbrel SureClick 50 mg/mL (1 mL) pen injector 0 mg SUBCUT QWEEK RF: 0 prednisone 5 mg tablet 5 mg PO DAILY RF: 0 fexofenadine 180 mg Tablet 180 mg PO DAILY RF: 0 famotidine 20 mg Tablet 20 mg PO BID RF: 0 calcium carbonate-vitamin D3 [Calcium 500 + D] 500 mg(1,250mg) -200 unit Tablet 1 tab PO DAILY RF: 0 omega 4-kcn-ulz-fish oil [Fish Oil] 1,000 mg (120 mg-180 mg) Capsule 1,000 cap PO BID-TID RF: 0 Referrals: Tayler Pinedo MD [Primary Care Provider] -
[2019-07-08 13:47] LABS: Troponin I 0.148 ng/mL (0.01-0.034)
[2019-07-08] MEDS: ASPIRIN 325 MG TABLET PO (14:38)
[2019-07-08] MEDS: CLOPIDOGREL 75 MG TABLET 300 MG PO (16:15)
[2019-07-08] MEDS: HEPARIN DRIP 25,000 UNIT/500 ML IV.SOLN 15.132 UNIT IV (16:15)
[2019-07-08] MEDS: HEPARIN 5,000 UNIT/ML VIAL 5000 UNIT IV (16:15)
[2019-07-08] MEDS: METOPROLOL ER 25 MG TABLET PO (16:16)
[2019-07-08] MEDS: ATORVASTATIN 20 MG TABLET 40 MG PO (16:16)
--- NOTE | 2019-07-08 18:03 | PC.NURSE ---
1600- Informed by LORENA Hensley that patient did not know she was being transferred or what her condition was. I updated her and her and apologized for the doctor not being able to update them. I explained the medications and the procedure for getting her to [facility]. Pt and verbalizes understanding. All questions answered. Agrees to sign COBRA form for transfer.
--- NOTE | 2019-07-27 09:54 | PC.NURSE ---
Late entry: Pt tx VIA ALS ambulance with Heparin running. Heparin started at 1515 at 15mL/hr. pt had approx. 60 mL in at time of transfer (1826)
== END 2019-07-08 18:27 | disposition short-term general hospital (02) ==
PROVIDERS: Emergency Provider Emergency Medicine; PCP Internal Medicine
DX: I21.4 Non-ST elevation (NSTEMI) myocardial infarction (principal)
CPT/HCPCS: 36415; 71045; 80053; 82550; 83690; 84484; 85025; 85610; 85730; 93005; 93010; 96365; 96366; 96375; 99285; J1644

== ENCOUNTER → 2020-07-18 14:16 | Outpatient (CLI) | payer MEDICARE, OTHER, SELFPAY ==
--- NOTE | 2020-07-18 | DI.MG.S_ITS ---
BILATERAL DIGITAL SCREENING MAMMOGRAM 3D/2D WITH CAD: 07/18/2020 CLINICAL: Routine screening. Comparison is made to exams dated: 06/03/2019 mammogram, 04/24/2018 mammogram - [facility], and 07/18/2016 mammogram - [facility]. The tissue of both breasts is extremely dense, which lowers the sensitivity of mammography. Current study was also evaluated with a Computer Aided Detection (CAD) system. There are benign calcifications in both breasts. There also are benign vascular calcifications in both breasts. No significant masses, calcifications, or other findings are seen in either breast. There has been no significant interval change. IMPRESSION: BENIGN There is no mammographic evidence of malignancy. A 1 year screening mammogram is recommended. This exam was interpreted at Station ID: [id number]. NOTE: For mammograms, a report in lay terms will be sent to the patient. Approximately 15% of breast malignancies will not be visualized mammographically. In the management of a palpable breast mass, a negative mammogram must not discourage biopsy of a clinically suspicious lesion. Electronically Signed By: Nick Espinoza acr/penrad:07/19/2020 17:41:39 letter sent: Normal Exam ACR BI-RADS Category 2: Benign Finding(s) 3342F
== END ==
PROVIDERS: PCP Internal Medicine; Referring Provider Internal Medicine; Visit Provider Internal Medicine
DX: Z12.31 Encounter for screening mammogram for malignant neoplasm of breast (principal)
CPT/HCPCS: 77063; 77067

== ENCOUNTER → 2020-12-11 10:09 | Outpatient (CLI) | payer MEDICARE, OTHER, SELFPAY ==
[2020-12-11 10:58] LABS: Hematocrit 37.9 % (36-46); Hemoglobin 12.6 g/dL (12.0-16.0); Mean Corpuscular HGB Conc 33.3 % (30-36); Mean Corpuscular Hemoglobin 30.2 PG (26-34); Mean Corpuscular Volume 90.6 fL (80-100); Platelet Count 262 X10^3/uL (150-400); Red Blood Cell Count 4.19 X10^6/uL (4.0-5.2); Red Cell Distribution Width 13.2 % (11.6-14.8)
[2020-12-11 11:16] LABS: Alanine Aminotransferase 20 IU/L (<35); Albumin 4.1 g/dL (3.5-5.0); Albumin Globulin Ratio 1.2 (1.0-2.8); Alkaline Phosphatase 47 U/L (38-126); Aspartate Aminotransferase 24 IU/L (14-36); BUN Creatinine Ratio 33.3 (6-22); Bilirubin Total 0.4 mg/dL (0.2-1.3); Blood Urea Nitrogen 27 mg/dL (7-17); Calcium 9.4 mg/dL (8.4-10.2); Carbon Dioxide 32 mmol/L (22-32); Chloride 105 mmol/L (98-107); Cholesterol 161 mg/dL (140-199); Estimated Glomerular Filt Rate > 60.0 mL/min (>60); Globulin 3.3 g/dL (1.7-4.1); Glucose 92 mg/dL (80-110); HDL Cholesterol 64 mg/dL (40-60); HEMOLYSIS < 15 (0-50); LDL Cholesterol Calculated 83 mg/dL (<100); Sodium 140 mmol/L (137-145); Total Protein 7.4 g/dL (6.3-8.2); Triglycerides 69 mg/dL (35-150)
[2020-12-11 11:46] LABS: TSH w/ Reflex to FT4 1.63 uIU/mL (0.47-4.68)
[2020-12-11 11:51] LABS: Neutrophils Absolute Manual 3150 /uL (3000-5900); Total Cells Counted 100
[2020-12-11 11:55] LABS: RBC Morphology Normal Morphology
== END ==
PROVIDERS: PCP Registered Nurse Diabetes Educator; Referring Provider Registered Nurse Diabetes Educator; Visit Provider Registered Nurse Diabetes Educator
DX: E78.5 Hyperlipidemia, unspecified (principal); M06.9 Rheumatoid arthritis, unspecified
CPT/HCPCS: 36415; 80053; 80061; 84443; 85025

== ENCOUNTER → 2021-05-06 11:12 | Outpatient (CLI) | payer MEDICARE, OTHER, SELFPAY | PROVIDERS: PCP Registered Nurse Diabetes Educator; Referring Provider Nurse Practitioner; Visit Provider Nurse Practitioner | DX: N39.0 Urinary tract infection, site not specified (principal) | CPT/HCPCS: 87086 ==

== ENCOUNTER → 2021-05-18 14:26 | Outpatient (CLI) | payer MEDICARE, OTHER, SELFPAY | PROVIDERS: PCP Registered Nurse Diabetes Educator; Visit Provider Nurse Practitioner Family | DX: N89.8 Other specified noninflammatory disorders of vagina (principal); R39.15 Urgency of urination; R35.0 Frequency of micturition | CPT/HCPCS: 87086; 87210 ==

== ENCOUNTER → 2021-05-21 09:43 | Outpatient (CLI) | payer MEDICARE, OTHER, SELFPAY ==
--- NOTE | 2021-05-21 09:45 | DI.US.S_ITS ---
PROCEDURE: US PELVIC COMPLETE INDICATIONS: SUPRAPUBIC PAIN X 3 WEEKS TECHNIQUE: Real-time scanning was performed of the pelvic organs, with image documentation. Additional endovaginal scanning was necessary due to incomplete visualization of the adnexal and endometrial structures by transabdominal scanning. COMPARISON: [facility], US, US PELVIC COMPLETE, 03/27/2018, 8:40. FINDINGS: Uterus: Uterus is normal in size at 5.4 x 2.5 x 4 cm. The endometrium measures 1.2 mm in combined thickness. No discrete uterine fibroid is seen. No endometrial mass or fluid. Ovaries: Right ovary measures 1.3 x 0.7 x 0.8 cm in size and is within normal limits. Left ovary is not visualized. Other: No pathologic free abdominal or pelvic fluid. IMPRESSION: Left ovary is not visualized. Unremarkable ultrasound examination of uterus and right ovary. > Dictated by: Madi Chavarria M.D. on 05/21/2021 at 10:47 Approved by: Madi Chavarria M.D. on 05/21/2021 at 10:52
== END ==
PROVIDERS: PCP Registered Nurse Diabetes Educator; Referring Provider Nurse Practitioner Family; Visit Provider Nurse Practitioner Family
DX: R10.2 Pelvic and perineal pain (principal); R35.0 Frequency of micturition; N89.8 Other specified noninflammatory disorders of vagina
CPT/HCPCS: 76830; 76856

== ENCOUNTER → 2021-07-14 12:01 | Outpatient (CLI) | payer MEDICARE, OTHER, SELFPAY | PROVIDERS: PCP Registered Nurse Diabetes Educator; Referring Provider Physician Assistant; Visit Provider Physician Assistant | DX: M85.88 Other specified disorders of bone density and structure, other site (principal); Z78.0 Asymptomatic menopausal state; M06.9 Rheumatoid arthritis, unspecified | CPT/HCPCS: 77080 ==

== ENCOUNTER → 2021-08-18 11:38 | Outpatient (CLI) | payer MEDICARE, OTHER, SELFPAY ==
--- NOTE | 2021-08-18 11:40 | DI.MG.S_ITS ---
BILATERAL DIGITAL SCREENING MAMMOGRAM 3D/2D WITH CAD: 08/18/2021 CLINICAL: Routine screening. Comparison is made to exams dated: 07/18/2020 mammogram, 06/03/2019 mammogram, and 04/24/2018 mammogram - [facility]. The tissue of both breasts is extremely dense, which lowers the sensitivity of mammography. Current study was also evaluated with a Computer Aided Detection (CAD) system. There are benign calcifications in both breasts. There also are benign vascular calcifications in both breasts. No significant masses, calcifications, or other findings are seen in either breast. There has been no significant interval change. IMPRESSION: BENIGN There is no mammographic evidence of malignancy. A 1 year screening mammogram is recommended. This exam was interpreted at Station ID: [id number]. NOTE: For mammograms, a report in lay terms will be sent to the patient. Approximately 15% of breast malignancies will not be visualized mammographically. In the management of a palpable breast mass, a negative mammogram must not discourage biopsy of a clinically suspicious lesion. Electronically Signed By: Tony Wilson M.D., jr/afia:08/18/2021 12:31:41 letter sent: Normal Exam ACR BI-RADS Category 2: Benign Finding(s) 3342F
== END ==
PROVIDERS: PCP Registered Nurse Diabetes Educator; Referring Provider Registered Nurse Diabetes Educator; Visit Provider Registered Nurse Diabetes Educator
DX: Z12.31 Encounter for screening mammogram for malignant neoplasm of breast (principal)
CPT/HCPCS: 77063; 77067

== ENCOUNTER → 2021-12-15 09:33 | Outpatient (CLI) | payer MEDICARE, OTHER, SELFPAY ==
[2021-12-15 10:18] LABS: Add Manual Diff / Slide Review NO; Basophils Absolute Auto 100 /uL (0-100); Basophils Percent Auto 1.7 % (0-2); Eosinophils Absolute Auto 200 /uL (0-450); Eosinophils Percent Auto 4.7 % (2-4); Hematocrit 39.1 % (36-46); Hemoglobin 13.1 g/dL (12.0-16.0); Lymphocytes Absolute Auto 2200 /uL (1100-4500); Lymphocytes Percent Auto 42.6 % (25-40); Mean Corpuscular HGB Conc 33.6 % (30-36); Mean Corpuscular Hemoglobin 29.8 PG (26-34); Mean Corpuscular Volume 88.6 fL (80-100); Monocytes Absolute Auto 400 /uL (0-900); Monocytes Percent Auto 8.8 % (3-14); Neutrophils Absolute Auto 2100 /uL (1500-7000); Neutrophils Percent Auto 42.2 % (50-75); Platelet Count 243 X10^3/uL (150-400); Red Blood Cell Count 4.41 X10^6/uL (4.0-5.2); Red Cell Distribution Width 12.6 % (11.6-14.8); White Blood Cell Count 5.1 X10^3/uL (4.5-11.0)
[2021-12-15 10:41] LABS: Alanine Aminotransferase 17 IU/L (<35); Albumin 4.1 g/dL (3.5-5.0); Albumin Globulin Ratio 1.1 (1.0-2.8); Alkaline Phosphatase 52 U/L (38-126); Aspartate Aminotransferase 24 IU/L (14-36); BUN Creatinine Ratio 23.6 (6-22); Bilirubin Total 0.5 mg/dL (0.2-1.3); Blood Urea Nitrogen 21 mg/dL (7-17); Calcium 8.7 mg/dL (8.4-10.2); Carbon Dioxide 32 mmol/L (22-32); Chloride 104 mmol/L (98-107); Cholesterol 151 mg/dL (140-199); Estimated Glomerular Filt Rate > 60 mL/min (>60); Globulin 3.6 g/dL (1.7-4.1); Glucose 97 mg/dL (80-110); HDL Cholesterol 50 mg/dL (40-60); HEMOLYSIS < 15 (0-50); LDL Cholesterol Calculated 86 mg/dL (<100); Sodium 142 mmol/L (137-145); Total Protein 7.7 g/dL (6.3-8.2); Triglycerides 75 mg/dL (35-150)
[2021-12-15 11:12] LABS: TSH w/ Reflex to FT4 0.64 uIU/mL (0.47-4.68)
== END ==
PROVIDERS: PCP Registered Nurse Diabetes Educator; Referring Provider Registered Nurse Diabetes Educator; Visit Provider Registered Nurse Diabetes Educator
DX: E78.5 Hyperlipidemia, unspecified (principal); M06.9 Rheumatoid arthritis, unspecified; M35.00 Sjogren syndrome, unspecified
CPT/HCPCS: 36415; 80053; 80061; 84443; 85025

== ENCOUNTER → 2022-04-01 09:49 | Outpatient (CLI) | payer MEDICARE, OTHER, SELFPAY ==
[2022-04-01 12:40] LABS: Cholesterol 186 mg/dL (140-199); HDL Cholesterol 51 mg/dL (40-60); LDL Cholesterol Calculated 121 mg/dL (<100); Triglycerides 71 mg/dL (35-150)
== END ==
PROVIDERS: PCP Registered Nurse Diabetes Educator; Referring Provider Registered Nurse Diabetes Educator; Visit Provider Registered Nurse Diabetes Educator
DX: E78.5 Hyperlipidemia, unspecified (principal)
CPT/HCPCS: 36415; 80061

== ENCOUNTER → 2023-01-16 11:04 | Outpatient (CLI) | payer MEDICARE, OTHER, SELFPAY ==
[2023-01-16 11:32] LABS: Hematocrit 38.6 % (36-46); Mean Corpuscular HGB Conc 33.7 % (30-36); Platelet Count 261 X10^3/uL (150-400); Red Blood Cell Count 4.34 X10^6/uL (4.0-5.2); Red Cell Distribution Width 12.7 % (11.6-14.8); White Blood Cell Count 5.6 X10^3/uL (4.5-11.0)
[2023-01-16 12:10] LABS: Alanine Aminotransferase 25 IU/L (<35); Albumin Globulin Ratio 1.1 (1.0-2.8); Alkaline Phosphatase 72 U/L (38-126); Aspartate Aminotransferase 32 IU/L (14-36); BUN Creatinine Ratio 30.7 (6-22); Bilirubin Total 0.6 mg/dL (0.2-1.3); Blood Urea Nitrogen 23 mg/dL (7-17); Calcium 8.8 mg/dL (8.4-10.2); Carbon Dioxide 28 mmol/L (22-32); Chloride 105 mmol/L (98-107); Cholesterol 180 mg/dL (140-199); Estimated Glomerular Filt Rate > 60 mL/min (>60); Globulin 3.8 g/dL (1.7-4.1); Glucose 98 mg/dL (80-110); HDL Cholesterol 45 mg/dL (40-60); HEMOLYSIS 17 (0-50); LDL Cholesterol Calculated 115 mg/dL (<100); Potassium 3.9 mmol/L (3.4-5.1); Sodium 139 mmol/L (137-145); Total Protein 7.8 g/dL (6.3-8.2); Triglycerides 99 mg/dL (35-150)
[2023-01-16 12:59] LABS: Free T4, Direct Thyroxine 1.11 ng/dL (0.78-2.19)
== END ==
PROVIDERS: PCP Registered Nurse Diabetes Educator; Referring Provider Registered Nurse Diabetes Educator; Visit Provider Registered Nurse Diabetes Educator
DX: E78.5 Hyperlipidemia, unspecified (principal); M06.9 Rheumatoid arthritis, unspecified
CPT/HCPCS: 36415; 80053; 80061; 84439; 84443; 85027

== ENCOUNTER → 2023-05-25 12:38 | Outpatient (CLI) | payer MEDICARE, OTHER, SELFPAY ==
--- NOTE | 2023-05-25 | DI.MG.S_ITS ---
BILATERAL DIGITAL SCREENING MAMMOGRAM 3D/2D WITH CAD: 05/25/2023 CLINICAL: Routine screening. Comparison is made to exams dated: 08/18/2021 mammogram, 07/18/2020 mammogram, and 06/03/2019 mammogram - [facility]. Both breasts are heterogeneously dense, which may obscure small masses (category c / 51-75% glandular tissue). Current study was also evaluated with a Computer Aided Detection (CAD) system. No significant masses, calcifications, or other findings are seen in either breast. There has been no significant interval change. IMPRESSION: NEGATIVE There is no mammographic evidence of malignancy. A 1 year screening mammogram is recommended. Based on the Tyrer Cuzick model (a risk assessment model) the patient's lifetime risk is 6.3% and her 10 year risk is 4.0%. According to the ACR, ACS, and NCCN guidelines, an annual breast MRI exam along with mammogram is recommended if the patient's lifetime risk is 20% or greater. This exam was interpreted at Station ID: [id number]. NOTE: For mammograms, a report in lay terms will be sent to the patient. Approximately 15% of breast malignancies will not be visualized mammographically. In the management of a palpable breast mass, a negative mammogram must not discourage biopsy of a clinically suspicious lesion. Electronically Signed By: Seble oliveira/afia:05/25/2023 17:04:52 letter sent: Normal Exam ACR BI-RADS Category 1: Negative 3341F
== END ==
PROVIDERS: PCP Registered Nurse Diabetes Educator; Referring Provider Registered Nurse Diabetes Educator; Visit Provider Registered Nurse Diabetes Educator
DX: Z12.31 Encounter for screening mammogram for malignant neoplasm of breast (principal)
CPT/HCPCS: 77063; 77067

== ENCOUNTER → 2023-07-17 10:31 | Outpatient (CLI) | payer MEDICARE, OTHER, SELFPAY ==
[2023-07-17 11:28] LABS: Cholesterol 146 mg/dL (140-199); HDL Cholesterol 53 mg/dL (40-60); LDL Cholesterol Calculated 74 mg/dL (<100); Triglycerides 93 mg/dL (35-150)
[2023-07-17 11:53] LABS: Thyroid Stimulating Hormone 0.723 uIU/mL (0.47-4.68)
[2023-07-18 06:22] LABS: Triiodothyronine T3 Total 113 ng/dL (71-180)
== END ==
PROVIDERS: PCP Registered Nurse Diabetes Educator; Referring Provider Registered Nurse Diabetes Educator; Visit Provider Registered Nurse Diabetes Educator
DX: E78.5 Hyperlipidemia, unspecified (principal); R79.89 Other specified abnormal findings of blood chemistry
CPT/HCPCS: 36415; 80061; 84439; 84443; 84480

== ENCOUNTER → 2023-08-18 14:17 | Outpatient (CLI) | payer MEDICARE, OTHER, SELFPAY ==
--- NOTE | 2023-08-18 | DI.RAD.S_ITS ---
Bone Density Report Name: CHRIS CAMPOS Age: 72 Sex: Female Ethnicity: Date of : 1950 Indication: osteopenia; history of glucocorticoids; rheumatoid arthritis; Referring Provider: AURY GIBBS Study: Bone densitometry was performed. Exam Date: August 18, 2023 Accession number: [id number] Bone Density: Region BMD T-score Z-score Classification AP Spine(L1-L4) 0.823 -2.0 0.1 Osteopenia Femoral Neck (Left) 0.630 -2.0 -0.1 Osteopenia Total Hip (Left) 0.818 -1.0 0.5 Normal Femoral Neck (Right) 0.652 -1.8 0.1 Osteopenia Total Hip (Right) 0.767 -1.4 0.1 Osteopenia Total Hip Mean 0.792 -1.2 0.3 Osteopenia World Health Organization criteria for BMD impression classify patients as: Normal (T-score at or above -1.0), Osteopenia (T-score between -1.0 and -2.5), or Osteoporosis (T-score at or below -2.5). 10-year Fracture Risk(1): Major Osteoporotic Fracture 14% Hip Fracture 3.3% Reported Risk Factors: [place] (), Neck BMD=0.630, BMI=25.8, glucocorticoids, rheumatoid arthritis (1) FRAX(R) Version 3.08. Fracture probability calculated for an untreated patient. Fracture probability may be lower if the patient has received treatment. Previous Exams: -- Region Exam Age BMD T-score BMD Change BMD Change Date g/cm2 vs Baseline vs Previous -- AP Spine (L1-L4) 08/18/2023 72 0.823 -2.0 -0.025 (-2.9%)# -0.023 (-2.7%)# 07/14/2021 70 0.847 -1.8 -0.002 (-0.2%) 0.019 (2.3%) 05/27/2019 68 0.828 -2.0 -0.020 (-2.4%) -0.020 (-2.4%) 05/25/2017 66 0.848 -1.8 Total Hip(Left) 08/18/2023 72 0.818 -1.0 -0.022 (-2.6%)# -0.013 (-1.6%)# 07/14/2021 70 0.831 -0.9 -0.008 (-1.0%) 0.014 (1.7%) 05/27/2019 68 0.817 -1.0 -0.022 (-2.7%) -0.022 (-2.7%) 05/25/2017 66 0.840 -0.8 Total Hip(Right) 08/18/2023 72 0.767 -1.4 -0.049 (-6.0%)# -0.036 (-4.4%)# 07/14/2021 70 0.802 -1.1 -0.013 (-1.6%) -0.007 (-0.8%) 05/27/2019 68 0.809 -1.1 -0.007 (-0.8%) -0.007 (-0.8%) 05/25/2017 66 0.816 -1.0 -- *Denotes significance at 95% confidence level, LSC for AP Spine = 0.022 g/cm2, LSC for Total Hip = 0.027 g/cm2 # Denotes dissimilar scan types or analysis methods Impression: The patient has low bone mass, based on the Total Spine T-score. The patient has an estimated ten-year risk of hip fracture of 3.3% and an estimated ten-year risk of major fracture of 14%, based on the WHO FRAX algorithm. The patient has risk factors, including: history of glucocorticoid therapy. No significant bone loss was observed. Discussion: BONE DENSITY IS LOW AT ONE OR MORE SKELETAL SITES. THE PATIENT'S BMD AND CLINICAL RISK FACTORS CONTRIBUTE TO THIS PATIENT'S INCREASED RISK OF FRACTURE. This patient's lowest T-score is low at one or more skeletal sites. It meets the World Health Organization's (WHO) criteria for low bone mass (T-score between -1.0 and -2.5). The patient's 10-year risk of hip fracture as calculated by FRAX exceeds the threshold where pharmacological therapy is recommended by the National Osteoporosis Foundation (NOF). However, all treatment decisions require clinical judgment and consideration of individual patient factors, including patient preferences, comorbidities, previous drug use, risk factors not captured in the FRAX model (e.g., frailty, falls, vitamin D deficiency, increased bone turnover, interval significant decline in bone density) and possible under or overestimation of fracture risk by FRAX. The patient should follow a healthful lifestyle (good nutrition with adequate calcium and vitamin D, and appropriate weight-bearing exercise). Follow-Up: Consider a repeat BMD and Vertebral Fracture Assessment (VFA) exam in 2 years or sooner if medically necessary, to reassess this patient's status. Reported by: DANILO CASH M.D. on 08/18/2023 2:55:00 PM.
== END ==
PROVIDERS: PCP Registered Nurse Diabetes Educator; Referring Provider Physician Assistant; Visit Provider Physician Assistant
DX: Z79.52 Long term (current) use of systemic steroids (principal); M05.79 Rheumatoid arthritis with rheumatoid factor of multiple sites without organ or systems involvement; M85.88 Other specified disorders of bone density and structure, other site
CPT/HCPCS: 77080

== ENCOUNTER → 2024-01-09 09:30 | Outpatient (CLI) | payer MEDICARE, OTHER, SELFPAY ==
[2024-01-09 10:35] LABS: Hematocrit 39.3 % (36-46); Hemoglobin 13.2 g/dL (12.0-16.0); Mean Corpuscular HGB Conc 33.6 % (30-36); Mean Corpuscular Hemoglobin 30.6 PG (26-34); Platelet Count 277 X10^3/uL (150-400); Red Blood Cell Count 4.32 X10^6/uL (4.0-5.2); Red Cell Distribution Width 12.5 % (11.6-14.8); White Blood Cell Count 6.5 X10^3/uL (4.5-11.0)
[2024-01-09 10:56] LABS: Alanine Aminotransferase 33 IU/L (<35); Albumin 4.2 g/dL (3.5-5.0); Albumin Globulin Ratio 1.4 (1.0-2.8); Alkaline Phosphatase 57 U/L (38-126); Aspartate Aminotransferase 27 IU/L (14-36); BUN Creatinine Ratio 22.1 (6-22); Bilirubin Total 0.6 mg/dL (0.2-1.3); Blood Urea Nitrogen 19 mg/dL (7-17); Calcium 9.2 mg/dL (8.4-10.2); Carbon Dioxide 35 mmol/L (22-32); Chloride 105 mmol/L (98-107); Cholesterol 152 mg/dL (140-199); Estimated Glomerular Filt Rate > 60 mL/min (>60); Globulin 3.1 g/dL (1.7-4.1); Glucose 91 mg/dL (80-110); HDL Cholesterol 68 mg/dL (40-60); HEMOLYSIS < 15 (0-50); LDL Cholesterol Calculated 71 mg/dL (<100); Potassium 3.8 mmol/L (3.4-5.1); Sodium 141 mmol/L (137-145); Total Protein 7.3 g/dL (6.3-8.2); Triglycerides 63 mg/dL (35-150)
[2024-01-09 11:27] LABS: TSH w/ Reflex to FT4 1.71 uIU/mL (0.47-4.68)
== END ==
PROVIDERS: PCP Registered Nurse Diabetes Educator; Referring Provider Registered Nurse Diabetes Educator; Visit Provider Registered Nurse Diabetes Educator
DX: E78.5 Hyperlipidemia, unspecified (principal); R79.89 Other specified abnormal findings of blood chemistry; M06.9 Rheumatoid arthritis, unspecified; M35.00 Sjogren syndrome, unspecified
CPT/HCPCS: 36415; 80053; 80061; 84443; 85027

== ENCOUNTER → 2024-03-26 10:32 | Outpatient (CLI) | payer MEDICARE, OTHER, SELFPAY ==
[2024-03-26 15:29] LABS: Vitamin D 25 Hydroxy (D3) 55.7 ng/mL (30.0-100.0)
== END ==
PROVIDERS: PCP Registered Nurse Diabetes Educator; Referring Provider Registered Nurse Diabetes Educator; Visit Provider Registered Nurse Diabetes Educator
DX: M85.80 Other specified disorders of bone density and structure, unspecified site (principal)
CPT/HCPCS: 36415; 82306

== ENCOUNTER → 2024-06-19 16:15 | Outpatient (CLI) | payer MEDICARE, OTHER, SELFPAY ==
[2024-06-19 17:35] LABS: Blood Urea Nitrogen 21 mg/dL (7-17); Calcium 9.4 mg/dL (8.4-10.2); Carbon Dioxide 32 mmol/L (22-32); Chloride 101 mmol/L (98-107); Estimated Glomerular Filt Rate > 60 mL/min (>60); Glucose 126 mg/dL (80-110); HEMOLYSIS < 15 (0-50); Potassium 4.5 mmol/L (3.4-5.1); Sodium 139 mmol/L (137-145)
== END ==
LOC: LAB 16:16
PROVIDERS: PCP Registered Nurse Diabetes Educator; Referring Provider Registered Nurse Diabetes Educator; Visit Provider Registered Nurse Diabetes Educator
DX: Z01.812 Encounter for preprocedural laboratory examination (principal); M85.89 Other specified disorders of bone density and structure, multiple sites
CPT/HCPCS: 36415; 80048

== ENCOUNTER 2024-06-28 09:17 | Emergency (ER) | payer MEDICARE, OTHER, SELFPAY ==
[2024-06-28] VITALS (17 sets, daily range): BP systolic 92–143; BP diastolic 52–81; PULSE 88–123; RESP 14–38; TEMP 37.3–37.8; O2SAT 93–100; BMI 24.3
--- NOTE | 2024-06-28 09:23 | DI.RAD.S_ITS ---
PROCEDURE: XR CHEST 1V INDICATIONS: chest pain TECHNIQUE: One view of the chest was acquired. COMPARISON: [facility], CR, XR CHEST 1V, 07/08/2019, 9:48. FINDINGS: Surgical changes and devices: None. Lungs and pleura: Lungs are clear. No pleural effusions or pneumothorax. Mediastinum: Mediastinal contours appear normal. Heart size is normal. Bones and chest wall: No suspicious bony lesions. Overlying soft tissues appear unremarkable. IMPRESSION: No acute cardiopulmonary pathology. Dictated by: Madi Chavarria M.D. on 06/28/2024 at 10:08 Approved by: Madi Chavarria M.D. on 06/28/2024 at 10:08
--- NOTE | 2024-06-28 09:30 | EKG_ITS ---
[address] [address] Test Date: 2024-06-28 Pat Name: Miracle Vital Department: Room: Gender: Female Inventory Control/Shipping Receiving: YURY : 1950 Requested By: Order Number: [id number] Reading MD: Sukh Mata Measurements Intervals Hester Rate: 118 P: 45 WY: 168 QRS: 42 QRSD: 64 T: 54 QT: 320 QTc: 448 Interpretive Statements Sinus tachycardia with occasional premature ventricular complexes Low voltage QRS Electronically Signed On 06-28-2024 13:18:59 PDT by Sukh Mata
[2024-06-28 09:36] LABS: Add Manual Diff / Slide Review NO; Basophils Absolute Auto 0 /uL (0-100); Basophils Percent Auto 0.2 % (0-2); Eosinophils Absolute Auto 0 /uL (0-450); Eosinophils Percent Auto 0.2 % (2-4); Hematocrit 41.1 % (36-46); Hemoglobin 13.7 g/dL (12.0-16.0); Lymphocytes Absolute Auto 500 /uL (1100-4500); Lymphocytes Percent Auto 4.7 % (25-40); Mean Corpuscular HGB Conc 33.3 % (30-36); Mean Corpuscular Hemoglobin 30.3 PG (26-34); Mean Corpuscular Volume 90.8 fL (80-100); Monocytes Absolute Auto 100 /uL (0-900); Monocytes Percent Auto 1.3 % (3-14); Neutrophils Absolute Auto 10400 /uL (1500-7000); Neutrophils Percent Auto 93.6 % (50-75); Platelet Count 313 X10^3/uL (150-400); Red Blood Cell Count 4.53 X10^6/uL (4.0-5.2); Red Cell Distribution Width 12.8 % (11.6-14.8); White Blood Cell Count 11.1 X10^3/uL (4.5-11.0)
--- NOTE | 2024-06-28 09:39 | ED.CHESTPAIN ---
HPI - Chest Pain General Chief Complaint: Chest Pain Stated Complaint: per pt high pulse, chest pain Time Seen by Provider: 06/28/24 09:20 History of Present Illness HPI narrative: Patient brought here by for complaints of chest pain body aches muscle aches for the past 12 hours. Patient has history of non-STEMI hypertension hyperlipidemia and rheumatoid arthritis. Primary care ordered 1st dose of Reclast yesterday at 11:00 a.m.. Patient was doing well until about 10:00 p.m. last night when these symptoms started. Vital signs noted. Patient states she feels very warm, her forehead is warm to touch. Patient having chills. Related Data Home Medications Medication Instructions Recorded Confirmed famotidine 20 mg tablet 20 mg PO BID 07/08/19 04/03/24 fexofenadine 180 mg tablet 180 mg PO DAILY 11/04/20 04/03/24 ([facility]) prednisone 5 mg tablet mg PO 01/15/24 04/03/24 tofacitinib 5 mg tablet (Xeljanz) 5 mg PO BID 01/15/24 04/03/24 Calcium 1200 mg tab PO 04/03/24 04/03/24 ascorbic acid (vitamin C) 500 mg 500 mg PO DAILY 04/03/24 04/03/24 chewable tablet Previous Rx's Medication Instructions Recorded pseudoephedrine HCl 30 mg tablet 30 mg PO Q6H PRN nasal 04/11/23 congestion/ear pressure #30 tabs fluticasone propionate 50 2 spray intranasal DAILY #16 grams 01/15/24 mcg/actuation nasal spray,suspension (Flonase Allergy Relief) rosuvastatin 5 mg tablet 5 mg PO DAILY #90 tabs 01/15/24 Allergies Allergy/AdvReac Type Severity Reaction Status Date / Time estrogens, conjugated Allergy Unknown Verified 04/03/24 11:27 [From PREMARIN] Review of Systems Review of Systems Narrative: GENERAL: Positive chills, fatigue, malaise, fever, negative sweats. HEENT: negative sinus pain, ear pain, sore throat RESPIRATORY: negative dyspnea, cough CARDIOVASCULAR: Positive chest pain, palpitations GASTROINTESTINAL: negative nausea, vomiting, abdominal pain : negative dysuria, frequency, hematuria MUSCULOSKELETAL: Positive muscle or bony pain SKIN: negative rash, skin lesions NEUROLOGIC: negative weakness, numbness ROS Unobtainable: All systems reviewed & are unremarkable except as noted in HPI and below Patient History Medical History Fracture Risk Assessment Score (FRAX) indicating greater than 3% risk for hip fracture Vertigo Allergic rhinitis Suprapubic pain Eczema (~2015) Sjogren's syndrome (~2010) Shortness of breath Measles (~1983) Chicken pox (~1961) Patino's esophagus Dyslipidemia Rheumatoid arthritis (~2009) Surgical History History of tympanoplasty of left ear Anesthesia History of surgical removal of ganglion cyst History of tympanoplasty (~2008) History of cataract removal with insertion of prosthetic lens (~2013) No pertinent past surgical history Family History Father Diabetes mellitus Mother Hypertension Abdominal pain Brother History of heart disease Sister Stroke Diabetes mellitus Hypertension Hyperlipidemia Grandfather Hyperlipidemia Hypertension Grandfather Tuberculosis Social History Smoking Status: Never smoker Smoking Status: Never smoker alcohol intake frequency: a few times a month Substance Use Type: does not use Exam Narrative Exam Narrative: GENERAL: in no distress, not toxic not dyspneic HEAD: Normocephalic. EYES: Pupils equal round ENT: Mucous membranes moist. NECK: Trachea midline. CARDIOVASCULAR: Regular rate and rhythm, tachycardia, reproducible sternal chest pain on palpation RESPIRATORY: Clear to auscultation. Breath sounds equal bilaterally. No wheezes, rales, or rhonchi. GASTROINTESTINAL: Abdomen soft, non-tender EXTREMITIES: No gross deformities. BACK: No flank tenderness. NEURO: AOx4. Clear speech SKIN: Warm and dry PSYCH: Not anxious, is cooperative Initial Vital Signs Initial Vital Signs: Vital Signs Pulse Rate 109 H 06/28/24 09:22 Course Orders Ordered: Discontinued Medications Acetaminophen (Acetaminophen 325 Mg Tablet) 975 mg PO NOW ONE Stop: 06/28/24 09:39 Last Admin: 06/28/24 10:11 Dose: 975 mg Documented By: RB Sodium Chloride (Normal Saline 0.9%) 1,000 mls @ 1,000 mls/hr IV BOLUS ONE Stop: 06/28/24 12:31 Last Infusion: 06/28/24 13:07 Dose: Infused Documented By: Admin: 06/28/24 11:59 Dose: 1,000 mls/hr Documented By: GABRIEL Ketorolac Tromethamine (Ketorolac 30 Mg/Ml Vial) 15 mg IV NOW ONE Stop: 06/28/24 11:33 Last Admin: 06/28/24 12:00 Dose: 15 mg Documented By: GABRIEL Vital Signs Vital signs: Vital Signs - 8 hr 06/28/24 09:22 06/28/24 09:23 06/28/24 09:23 Temperature Pulse Rate 109 H 115 H Respiratory Rate Blood Pressure 142/81 H Pulse Oximetry 96 Oxygen Delivery Method 06/28/24 09:28 06/28/24 09:30 06/28/24 09:30 Temperature 99.9 F H Pulse Rate 112 H 113 H Respiratory Rate 16 38 H Blood Pressure 142/81 H 143/67 H Pulse Oximetry 100 100 Oxygen Delivery Method Room Air 06/28/24 10:00 06/28/24 10:00 06/28/24 10:11 Temperature 99.9 F H Pulse Rate 108 H Respiratory Rate 23 Blood Pressure 129/71 Pulse Oximetry 95 Oxygen Delivery Method 06/28/24 10:30 06/28/24 10:30 06/28/24 11:00 Temperature Pulse Rate 106 H Respiratory Rate 25 H Blood Pressure 129/66 113/56 L Pulse Oximetry 94 Oxygen Delivery Method 06/28/24 11:00 06/28/24 11:30 06/28/24 11:31 Temperature Pulse Rate 109 H 114 H Respiratory Rate 23 30 H Blood Pressure 122/63 Pulse Oximetry 95 95 Oxygen Delivery Method 06/28/24 11:31 06/28/24 12:00 06/28/24 12:00 Temperature Pulse Rate 123 H 103 H Respiratory Rate 20 14 Blood Pressure 92/52 L Pulse Oximetry 97 95 Oxygen Delivery Method 06/28/24 12:03 06/28/24 12:30 06/28/24 12:30 Temperature 100.1 F H Pulse Rate 93 H Respiratory Rate 18 Blood Pressure 96/53 L Pulse Oximetry 97 Oxygen Delivery Method 06/28/24 13:00 06/28/24 13:00 06/28/24 13:30 Temperature Pulse Rate 92 H 91 H Respiratory Rate 23 21 Blood Pressure 101/57 L Pulse Oximetry 93 94 Oxygen Delivery Method 06/28/24 13:30 10/25/24 13:57 Temperature 99.1 F Pulse Rate Respiratory Rate Blood Pressure 109/75 Pulse Oximetry Oxygen Delivery Method MDM - Chest Pain Lab Data 06/28/24 09:27 06/28/24 09:27 Labs: Lab Results 06/28/24 06/28/24 Range/Units 09:27 09:45 WBC 11.1 H (4.5-11.0) X10^3/uL RBC 4.53 (4.0-5.2) X10^6/uL Hgb 13.7 (12.0-16.0) g/dL Hct 41.1 (36-46) % MCV 90.8 (80-100) fL MCH 30.3 (26-34) PG MCHC 33.3 (30-36) % RDW 12.8 (11.6-14.8) % Plt Count 313 (150-400) X10^3/uL Neut % (Auto) 93.6 H (50-75) % Lymph % (Auto) 4.7 L (25-40) % [place] % (Auto) 1.3 L (3-14) % Eos % (Auto) 0.2 L (2-4) % Baso % (Auto) 0.2 (0-2) % Neut # (Auto) 19612 H (9553-5394) /uL Lymph # (Auto) 500 L (7872-9473) /uL [place] # (Auto) 100 (0-900) /uL Eos # (Auto) 0 (0-450) /uL Baso # (Auto) 0 (0-100) /uL PT 10.9 (9.4-12.5) SECONDS INR 1.0 (0.9-1.3) APTT 28 (25.1-36.5) SECONDS Sodium 137 (137-145) mmol/L Potassium 4.0 (3.4-5.1) mmol/L Chloride 102 (98-107) mmol/L Carbon Dioxide 30 (22-32) mmol/L BUN 24 H (7-17) mg/dL Creatinine 1.08 H (0.52-1.04) mg/dL Estimated GFR 55 L (>60) mL/min BUN/Creatinine Ratio 22.2 H (6-22) Glucose 124 H (80-110) mg/dL Calcium 8.9 (8.4-10.2) mg/dL Total Bilirubin 0.9 (0.2-1.3) mg/dL AST 26 (14-36) IU/L ALT 25 (<35) IU/L Alkaline Phosphatase 59 (38-126) U/L Total Creatine Kinase 56 (30-135) U/L Troponin I < 0.012 (0.01-0.034) ng/mL Total Protein 7.8 (6.3-8.2) g/dL Albumin 4.4 (3.5-5.0) g/dL Globulin 3.4 (1.7-4.1) g/dL Albumin/Globulin Ratio 1.3 (1.0-2.8) Lipase 236 (23-300) U/L Chlamy pneumoniae PCR Not detected (Not Detect) Adenovirus (PCR) Not detected (Not Detect) B. pertussis DNA (PCR) Not detected (Not Detect) B.parapertussis DNA PCR Not detected (Not Detecte) Coronavirus OC43 (PCR) Not detected (Not Detect) Coronavirus HKU1 (PCR) Not detected (Not Detect) Coronavirus 229E (PCR) Not detected (Not Detect) SARS-CoV-2 (PCR) Detected H (Not Detecte) Coronavirus NL63 (PCR) Not detected (Not Detect) Human Metapneumovir PCR Not detected (Not Detect) Influenza Type A (PCR) Not detected (Not Detect) Influenza Type B (PCR) Not detected (Not Detect) M. pneumoniae (PCR) Not detected (Not Detect) Parainfluenza 1 (PCR) Not detected (Not Detect) Parainfluenza 2 (PCR) Not detected (Not Detect) Parainfluenza 3 (PCR) Not detected (Not Detect) Parainfluenza 4 (PCR) Not detected (Not Detect) RSV (PCR) Not detected (Not Detect) Entero/Rhino (PCR) Not detected (Not Detect) Imaging Data Chest x-ray: Radiologist's Impression: [address] [address] XRay Report Signed Patient: Miracle Vital MR#: [id number] : 1950 Acct:[id number] Age/Sex: 73 / F Date of Service: 06/28/24 Loc: ED Accession Number: [id number] Procedure: XR chest 1V Ordering Provider: Erick Holloway MD PROCEDURE: XR CHEST 1V INDICATIONS: chest pain TECHNIQUE: One view of the chest was acquired. COMPARISON: [facility], , XR CHEST 1V, 07/08/2019, 9:48. FINDINGS: Surgical changes and devices: None. Lungs and pleura: Lungs are clear. No pleural effusions or pneumothorax. Mediastinum: Mediastinal contours appear normal. Heart size is normal. Bones and chest wall: No suspicious bony lesions. Overlying soft tissues appear unremarkable. IMPRESSION: No acute cardiopulmonary pathology. Dictated by: Madi Chavarria M.D. on 06/28/2024 at 10:08 Approved by: Madi Chavarria M.D. on 06/28/2024 at 10:08 [facility] Narrative Medical decision making narrative: Patient brought here by for complaints of chest pain body aches muscle aches for the past 12 hours. Patient has history of non-STEMI hypertension hyperlipidemia and rheumatoid arthritis. Primary care ordered 1st dose of Reclast yesterday at 11:00 a.m.. Patient was doing well until about 10:00 p.m. last night when these symptoms started. Vital signs noted. Patient states she feels very warm, her forehead is warm to touch. Patient having chills. After history and exam EKG troponin CBC CMP Tylenol respiratory panel urinalysis chest x-ray panel monitor [facility] Medical records reviewed: Notes from July 2019 Differential considered: Includes but not limited to STEMI non-STEMI COVID influenza rhino virus medication reaction Lab Test results independently reviewed as above. Pertinent findings: Positive COVID, WBC 11.1 hemoglobin 13.7 INR 1.0 sodium 137 potassium 4.0 BUN 24 creatinine 1.08 troponin less than 0.012 Independently reviewed EKG sinus tachycardia rate [address] elevation or depression Imaging studies independently reviewed: Chest x-ray no acute finding Consultations: None indicated this time Treatments: Tylenol Toradol normal saline Re-evaluations: 2:00 p.m.. Patient feels much better. Heart rate has improved to 88. and patient states she is chronically dizzy due to ear problems. This is not new. Return precautions reviewed with him. With positive COVID and recent Reclast infusion, she could also have reaction to the Reclast. She will follow up with primary care whether to continue this or not. Return precautions reviewed, they will both quarantine for 5 days. No prescriptions are indicated this time. Discussion: Appropriate for discharge home exam is reassuring. Vital signs reassuring. Heart rate improved with IV fluids and fever control. Not toxic at discharge. Return precautions reviewed. They desire discharge home. Reviewed with patient and likely not cardiac event as she has fever here in reproducible chest pain on deep breath and palpation. Likely symptoms from viral infection. No repeat troponin indicated Diagnosis: COVID infection Discharge Plan Departure Patient Disposition: Home Clinical Impression: COVID-19 Instructions: DI for COVID-19 (Suspected or Confirmed ) Activity Restrictions/Additional Instructions: You have tested positive for COVID. You did have a fever here and was treated for it. I am glad you are feeling better. Please quarantine for 5 days starting today. You should not be traveling. Keep well hydrated. Return if worse if any questions or concerns. In addition you may also be having reaction to the Reclast infusion you had yesterday. Please contact your primary care provider you were seen here for possible reaction to the Reclast and may need to consider whether to take it again in the future. See family doctor for re-evaluation next week. Keep well hydrated. May continue ibuprofen or Tylenol for fever aches and pain. Prescriptions: No Action fexofenadine [[facility] Allergy] 180 mg tablet 180 mg PO DAILY prednisone 5 mg tablet PO Xeljanz 5 mg tablet 5 mg PO BID rosuvastatin 5 mg tablet 5 mg PO DAILY Qty: 90 3RF fluticasone propionate [Flonase Allergy Relief] 50 mcg/actuation spray,suspension 2 spray intranasal DAILY Qty: 16 11RF Rx Instructions: administer into each nostril pseudoephedrine HCl 30 mg tablet 30 mg PO Q6H PRN (Reason: nasal congestion/ear pressure) Qty: 30 1RF [place] Calcium 1200 mg tab PO ascorbic acid (vitamin C) 500 mg tablet,chewable 500 mg PO DAILY famotidine 20 mg Tablet 20 mg PO BID Referrals: Natan Zaragoza ARNP [Primary Care Provider] - Stand Alone Forms: Patient Portal/API
[2024-06-28 09:43] LABS: Prothrombin Time 10.9 SECONDS (9.4-12.5)
[2024-06-28 09:45] LABS: PTT Partial Thromboplastin Tim 28 SECONDS (25.1-36.5)
[2024-06-28 09:47] LABS: Alanine Aminotransferase 25 IU/L (<35); Albumin 4.4 g/dL (3.5-5.0); Albumin Globulin Ratio 1.3 (1.0-2.8); Alkaline Phosphatase 59 U/L (38-126); Aspartate Aminotransferase 26 IU/L (14-36); BUN Creatinine Ratio 22.2 (6-22); Bilirubin Total 0.9 mg/dL (0.2-1.3); Blood Urea Nitrogen 24 mg/dL (7-17); Calcium 8.9 mg/dL (8.4-10.2); Carbon Dioxide 30 mmol/L (22-32); Chloride 102 mmol/L (98-107); Creatine Kinase 56 U/L (30-135); Estimated Glomerular Filt Rate 55 mL/min (>60); Globulin 3.4 g/dL (1.7-4.1); Glucose 124 mg/dL (80-110); HEMOLYSIS < 15 (0-50); Lipase 236 U/L (23-300); Sodium 137 mmol/L (137-145); Total Protein 7.8 g/dL (6.3-8.2)
[2024-06-28 10:01] LABS: Troponin I < 0.012 ng/mL (0.01-0.034)
[2024-06-28] MEDS: ACETAMINOPHEN 325 MG TABLET 975 MG PO (10:11)
[2024-06-28 10:37] LABS: Adenovirus Not Detected (Not Detect); B. parapertussis Not Detected (Not Detecte); Bordetella pertussis Not Detected (Not Detect); Chlamydophila pneumoniae Not Detected (Not Detect); Coronavirus 229E Not Detected (Not Detect); Coronavirus HKU1 Not Detected (Not Detect); Coronavirus NL 63 Not Detected (Not Detect); Coronavirus OC43 Not Detected (Not Detect); Human Metapneumovirus Not Detected (Not Detect); Human Rhinovirus/Enterovirus Not Detected (Not Detect); Influenza A Not Detected (Not Detect); Influenza B Not Detected (Not Detect); Mycoplasma pneumoniae Not Detected (Not Detect); Parainfluenza Virus 1 Not Detected (Not Detect); Parainfluenza Virus 2 Not Detected (Not Detect); Parainfluenza Virus 3 Not Detected (Not Detect); Parainfluenza Virus 4 Not Detected (Not Detect); Respiratory Syncytial Virus Not Detected (Not Detect); SARS- CoV-2 Detected (Not Detecte)
[2024-06-28] MEDS: SODIUM CHLORIDE 0.9% 1,000 ML 1000 ML IV (11:59)
[2024-06-28] MEDS: KETOROLAC 30 MG/ML VIAL 15 MG IV (12:00)
== END 2024-06-28 14:32 | disposition home or self-care (01) ==
PROVIDERS: Emergency Provider Emergency Medicine; PCP Registered Nurse Diabetes Educator
DX: U07.1 COVID-19 (principal); R00.0 Tachycardia, unspecified; R79.89 Other specified abnormal findings of blood chemistry; I25.2 Old myocardial infarction
CPT/HCPCS: 71045; 80053; 82550; 83690; 84484; 85025; 85610; 85730; 87633; 93005; 96361; 96374; 99284; J1885

== ENCOUNTER → 2024-07-26 11:02 | Outpatient (CLI) | payer MEDICARE, OTHER, SELFPAY ==
--- NOTE | 2024-07-26 11:03 | DI.MG.S_ITS ---
BILATERAL DIGITAL SCREENING MAMMOGRAM 3D/2D WITH CAD: 07/26/2024 CLINICAL: Routine screening. Comparison is made to exams dated: 05/25/2023 mammogram, 08/18/2021 mammogram, and 07/18/2020 mammogram - [facility]. The breasts are heterogeneously dense, which may obscure small masses (category c / 51-75% glandular tissue). Current study was also evaluated with a Computer Aided Detection (CAD) system. No significant masses, calcifications, or other findings are seen in either breast. There has been no significant interval change. IMPRESSION: NEGATIVE There is no mammographic evidence of malignancy. A 1 year screening mammogram is recommended. Based on the Tyrer Cuzick model (a risk assessment model) the patient's lifetime risk is 5.9% and her 10 year risk is 4.1%. According to the ACR, ACS, and NCCN guidelines, an annual breast MRI exam along with mammogram is recommended if the patient's lifetime risk is 20% or greater. This exam was interpreted at Station ID: [id number]. NOTE: For mammograms, a report in lay terms will be sent to the patient. Approximately 15% of breast malignancies will not be visualized mammographically. In the management of a palpable breast mass, a negative mammogram must not discourage biopsy of a clinically suspicious lesion. Electronically Signed By: Daren scott/afia:07/26/2024 12:29:13 letter sent: Normal Exam ACR BI-RADS Category 1: Negative
== END ==
PROVIDERS: PCP Registered Nurse Diabetes Educator; Referring Provider Registered Nurse Diabetes Educator; Visit Provider Registered Nurse Diabetes Educator
DX: Z12.31 Encounter for screening mammogram for malignant neoplasm of breast (principal); R92.333 Mammographic heterogeneous density, bilateral breasts
CPT/HCPCS: 77063; 77067

== ENCOUNTER → 2024-11-26 09:09 | Outpatient (CLI) | payer MEDICARE, OTHER, SELFPAY ==
[2024-11-26 09:56] LABS: Hematocrit 39.2 % (36-46); Hemoglobin 13.1 g/dL (12.0-16.0); Mean Corpuscular HGB Conc 33.4 % (30-36); Mean Corpuscular Hemoglobin 30.6 PG (26-34); Mean Corpuscular Volume 91.8 fL (80-100); Platelet Count 282 X10^3/uL (150-400); Red Blood Cell Count 4.27 X10^6/uL (4.0-5.2); Red Cell Distribution Width 12.8 % (11.6-14.8)
[2024-11-26 10:21] LABS: Alanine Aminotransferase 23 IU/L (<35); Albumin 4.2 g/dL (3.5-5.0); Albumin Globulin Ratio 1.4 (1.0-2.8); Alkaline Phosphatase 54 U/L (38-126); Aspartate Aminotransferase 28 IU/L (14-36); BUN Creatinine Ratio 31.1 (6-22); Bilirubin Total 0.5 mg/dL (0.2-1.3); Blood Urea Nitrogen 28 mg/dL (7-17); Calcium 9.3 mg/dL (8.4-10.2); Carbon Dioxide 29 mmol/L (22-32); Chloride 106 mmol/L (98-107); Cholesterol 152 mg/dL (140-199); Estimated Glomerular Filt Rate > 60 mL/min (>60); Globulin 2.9 g/dL (1.7-4.1); Glucose 98 mg/dL (80-110); HDL Cholesterol 71 mg/dL (40-60); HEMOLYSIS < 15 (0-50); LDL Cholesterol Calculated 66 mg/dL (<100); Potassium 4.1 mmol/L (3.4-5.1); Sodium 140 mmol/L (137-145); Total Protein 7.1 g/dL (6.3-8.2); Triglycerides 73 mg/dL (35-150)
[2024-11-26 10:32] LABS: Vitamin D 25 Hydroxy (D3) 47.3 ng/mL (30.0-100.0)
== END ==
PROVIDERS: PCP Registered Nurse Diabetes Educator; Referring Provider Registered Nurse Diabetes Educator; Visit Provider Registered Nurse Diabetes Educator
DX: Z91.89 Other specified personal risk factors, not elsewhere classified (principal); E78.5 Hyperlipidemia, unspecified; M85.80 Other specified disorders of bone density and structure, unspecified site
CPT/HCPCS: 36415; 80053; 80061; 82306; 84443; 85027

== ENCOUNTER → 2025-04-08 14:56 | Outpatient (CLI) | payer MEDICARE, OTHER, SELFPAY | PROVIDERS: PCP Registered Nurse Diabetes Educator; Visit Provider Physician Assistant | DX: R21 Rash and other nonspecific skin eruption (principal) | CPT/HCPCS: 87070; 87075; 87205 ==

== ENCOUNTER → 2025-04-09 10:31 | Outpatient (CLI) | payer MEDICARE, OTHER, SELFPAY | PROVIDERS: PCP Registered Nurse Diabetes Educator; Visit Provider Physician Assistant | DX: R21 Rash and other nonspecific skin eruption (principal) | CPT/HCPCS: 87077; 87102; 87107 ==

== ENCOUNTER → 2025-06-04 12:10 | Outpatient (CLI) | payer MEDICARE, OTHER, SELFPAY ==
--- NOTE | 2025-06-04 12:11 | DI.RAD.S_ITS ---
PROCEDURE: XR DEXA AXIAL SKELETON INDICATIONS: re eval, osteoporosis screening COMPARISON: [facility], , XR DEXA AXIAL SKELETON, 08/18/2023, 14:43. [facility], CR, XR DEXA AXIAL SKELETON, 07/14/2021, 12:31. FINDINGS: Lumbar Spine: Bone mineral density 0.815 g/cm2, T score -2.1, no statistical comparison can not be made due to differences technique/modality. Left Femoral Neck: Bone mineral density 0.626 g/cm2, T score -2.0. Left Hip: Bone mineral density 0.824 g/cm2, T score -1.0, no statistical comparison can not be made due to differences technique/modality. Fracture Risk Calculation (when applicable): 10-year fracture risk of a major osteoporotic fracture 15 percent and of a hip fracture 3.8 percent. (T score greater or equal to -1.0 to: NORMAL) (T score from -1.1 to -2.4: OSTEOPENIA) (T score less than or equal to -2.5: OSTEOPOROSIS) IMPRESSION: Osteopenia. Follow-up guidelines as follows: Osteoporosis: Consider a repeat DEXA and Vertebral Fracture Assessment (VFA) exam in 2 years or sooner if medically necessary, to reassess this patient's status. Osteopenia: Consider a repeat DEXA in 2-3 years to reassess this patient's status, or if there is a new clinical indication. Normal: Consider a repeat DEXA in 5 years or sooner, or if there is a new clinical indication. All treatment decisions require clinical judgment and consideration of individual patient factors, including patient preferences, comorbidities, previous drug use, risk factors not captured in the FRAX model (e.g., frailty, falls, vitamin D deficiency, increased bone turnover, interval significant decline in bone density ) and possible under- or over-estimation of fracture risk by FRAX. In addition, the NOF Guide recommends that FDA-approved medical therapies be considered in postmenopausal women and men age >= 50 years with a: * Hip or vertebral (clinical or morphometric) fracture * T-score of <=-2.5 at the spine or hip * Ten-year fracture probability by FRAX of >= 3% for hip fracture or >=20% for major osteoporotic fracture. Dictated by: Ranjan Vaughan M.D. on 06/04/2025 at 15:46 Approved by: Ranjan Vaughan M.D. on 06/04/2025 at 16:01
== END ==
LOC: RAD 12:10
PROVIDERS: PCP Registered Nurse Diabetes Educator; Referring Provider Registered Nurse Diabetes Educator; Visit Provider Registered Nurse Diabetes Educator
DX: M85.89 Other specified disorders of bone density and structure, multiple sites (principal); Z91.89 Other specified personal risk factors, not elsewhere classified
CPT/HCPCS: 77080

== ENCOUNTER → 2025-07-02 12:00 | Outpatient (CLI) | payer MEDICARE, OTHER, SELFPAY ==
[2025-07-02 13:17] LABS: Blood Urea Nitrogen 21 mg/dL (7-17); Calcium 9.4 mg/dL (8.4-10.2); Carbon Dioxide 29 mmol/L (22-32); Chloride 104 mmol/L (98-107); Estimated Glomerular Filt Rate > 60 mL/min (>60); Glucose 99 mg/dL (70-99); HEMOLYSIS < 15 (0-50); Potassium 3.9 mmol/L (3.4-5.1); Sodium 141 mmol/L (137-145)
== END ==
PROVIDERS: PCP Registered Nurse Diabetes Educator; Referring Provider Registered Nurse Diabetes Educator; Visit Provider Registered Nurse Diabetes Educator
DX: Z01.812 Encounter for preprocedural laboratory examination (principal)
CPT/HCPCS: 36415; 80048

== ENCOUNTER → 2025-07-15 15:05 | Outpatient (CLI) | payer MEDICARE, OTHER, SELFPAY ==
[2025-07-15 15:40] LABS: COVID19 -Nasal RAPID Negative (Negative)
== END ==
PROVIDERS: PCP Registered Nurse Diabetes Educator; Visit Provider Registered Nurse Diabetes Educator
DX: Z20.822 Contact with and (suspected) exposure to COVID-19 (principal)
CPT/HCPCS: 87635